=== PATIENT | female | born 1970 | race Caucasian/White ===

== ENCOUNTER → 2016-11-27 | Outpatient (CLI) | payer BC ==
[~2016-11-27] MED LIST: CLMTP5 TOP; CYCL10TA6 PO; ESTROGEN PATCH TOP; FINA1TAB3 PO; IBUP-1050 PO; LORA-741 PO; MTR600X PO; OXYC-57 PO; OXYC5TAB PO; PRED20TA2 PO; SERT-234 PO; SERT25TA PO; VNTHFA/IN INH; albuterol inhaler INH
--- NOTE | 2016-11-28 13:31 | MAMMOGRAPHY REPORT ---
BILATERAL DIGITAL SCREENING MAMMOGRAM TOMOSYNTHESIS WITH CAD: 11/27/2016 CLINICAL HISTORY: Routine screening. Patient has no complaints. TECHNIQUE: Breast tomosynthesis in addition to standard 2D mammography was performed. Current study was also evaluated with a Computer Aided Detection (CAD) system. COMPARISON: Comparison is made to exams dated: 12/05/2014 mammogram, 05/18/2013 mammogram, and 10/24/19 12 mammogram - [facility]. BREAST COMPOSITION: There are scattered areas of fibroglandular density in both breasts. FINDINGS: There are clusters of calcifications in the right upper outer quadrant posteriorly and ri ght breast at approximately 3:00, for which spot magnification views are recommended for further ted luation. The remainder of both breasts are stable compared to prior exams, without suspicious masses, calcifi cations, or areas of architectural distortion noted. IMPRESSION: ACR BI-RADS CATEGORY 0: INCOMPLETE EVALUATION: NEED ADDITIONAL IMAGING EVALUATION Right breast calcifications, for which additional imaging evaluation is recommended. The patient wi ll be called to schedule an appointment. Approximately 10% of breast cancers are not detected with mammography. A negative mammographic repor t should not delay biopsy if a clinically suggestive mass is present. Mary Dent M.D. /:11/27/2016 15:56:18 Machine Welt Butter: Lexie BEAR(Prabhu)(Mohit)(BD), [facility] letter sent: Addl Imaging 0 BI-RADS Code: ACR BI-RADS Category 0: Incomplete Evaluation: Need Additional Imaging Evaluation
== END | disposition home or self-care (01) ==
LOC: C.MAMM 09:50
PROVIDERS: ATTEND Obstetrics & Gynecology
DX: Z12.31 Encounter for screening mammogram for malignant neoplasm of breast (principal); R92.0 Mammographic microcalcification found on diagnostic imaging of breast

== ENCOUNTER → 2016-12-05 | Outpatient (CLI) | payer BC ==
--- NOTE | 2016-12-05 14:33 | MAMMOGRAPHY REPORT ---
UNILATERAL RIGHT DIGITAL DIAGNOSTIC MAMMOGRAM: 12/05/2016 CLINICAL HISTORY: 46-year-old woman called back from screening mammography for 2 clusters of microca lcifications in the right breast. TECHNIQUE: Spot magnification right CC and ML views in the lateral and medial breast were obtained. COMPARISON: Comparison is made to exams dated: 11/27/2016 mammogram, 12/05/2014 mammogram, 10/24/2011 ma mmogram, and 05/18/2013 mammogram - [facility]. BREAST COMPOSITION: There are scattered areas of fibroglandular density in the right breast. FINDINGS: There are punctate and round microcalcifications in a linear distribution in the 1:00 mid dle one third of the right breast. Another fainter grouping of punctate microcalcifications are see n in the 8:00 posterior right breast. No associated mass or architectural distortion with the micro calcifications. They are new comparing to prior exams and therefore indeterminate. Definitive tyler acterization with tissue sampling is recommended. IMPRESSION: ACR BI-RADS CATEGORY 4B: INTERMEDIATE SUSPICION FOR MALIGNANCY The 2 clusters of microcalcifications in the right breast 1:00 and 8:00 axes are indeterminate, annamaria anting further evaluation with stereotactic guided biopsies. Sampling of the dominant punctate and round microcalcifications in a linear distribution in the 1:00 axis should be sampled first, and an attempt should also be made to sample the second, very faint smaller cluster more posteriorly in the 8:00 right breast, if they are visualized. These results and recommendations were discussed with the patient at the time of the exam. She tent atively scheduled the procedures prior to leaving our department. Approximately 10% of breast cancers are not detected with mammography. A negative mammographic repor t should not delay biopsy if a clinically suggestive mass is present. Tamar Castillo M.D. ay/:12/05/2016 09:58:21 Administrative Specialist: Fe BEAR(Prabhu)(Mohit), [facility] letter sent: Abnormal 4/5 BI-RADS Code: ACR BI-RADS Category 4B: Intermediate Suspicion For Malignancy
== END | disposition home or self-care (01) ==
LOC: C.MAMM 08:41
PROVIDERS: ATTEND Obstetrics & Gynecology
DX: R92.0 Mammographic microcalcification found on diagnostic imaging of breast (principal)

== ENCOUNTER 2016-12-17 17:11 | Emergency (ER) | payer BC ==
[~2016-12-17] VITALS: Ht 170.2 cm; Wt 101.4 kg
[~2016-12-17 17:11] MED LIST changes: -CLMTP5 TOP; -CYCL10TA6 PO; -ESTROGEN PATCH TOP; -IBUP-1050 PO; -LORA-741 PO; -OXYC-57 PO; -PRED20TA2 PO; -SERT-234 PO; -SERT25TA PO; -VNTHFA/IN INH
[2016-12-17 17:23] VITALS: TEMP 37; Ht 170.2 cm; Wt 101.4 kg
[2016-12-17] MEDS ORDERED: SODIUM CHLORIDE 0.9% 1000ML 1,000 ML IV STA (18:45)
[2016-12-17] MEDS ORDERED: ONDANSETRON INJ 2 MG/ML 2 ML VIAL IV STA (18:45)
[2016-12-17] MEDS ORDERED: OPTIRAY 320 IV PRN (19:00)
[2016-12-17] MEDS ORDERED: ESTROGEN PATCH TOP (19:27)
[2016-12-17 19:32] LABS: BASO % 0.3 %; BASO ABS # 0.04 K/uL (0-0.2); COMPLETE YES; IG% 0.4 %; LYMPH % 27.7 %; LYMPH ABS # 3.33 K/uL (1.2-3.4); MEAN CELL VOLUME 83.1 fL (80-100); MEAN CORPUSCULAR HEMOGLOBIN 27.9 pg (25-34); MEAN CORPUSCULAR HGB CONC 33.5 g/dl (32-36); MEAN PLATELET VOLUME 8.8 fL (7.4-10.4); MONO % 5.3 %; NEUT % 64.3 %; PLATELET COUNT 265 K/uL (130-400); RED BLOOD COUNT 4.45 M/uL (4.2-5.4); WHITE BLOOD COUNT 12.02 K/uL (4.8-10.8)
[2016-12-17 19:38] LABS: URINE APPEARANCE CLEAR (CLEAR); URINE BILIRUBIN NEG (NEG); URINE COLOR YELLOW; URINE NITRITE NEG (NEG); URINE PH 6.5 (4.5-7.5); URINE SPECIFIC GRAVITY 1.017 (1.000-1.030); UROBILINOGEN NEG (NEG); ZZUR CULT IF INDIC CLEAN CATCH NO
[2016-12-17 19:39] LABS: MANUAL MICROSCOPIC REQUIRED? NO; REVIEW REQ? NO
[2016-12-17 20:02] LABS: ALT/SGPT 33 U/L (12-78); AST/SGOT 18 U/L (15-37); BLOOD UREA NITROGEN 12 mg/dl (7-18); BUN/CREATININE RATIO 14.1 (10-20); CALCIUM 9.2 mg/dl (8.5-10.1); CARBON DIOXIDE 27 mmol/L (21-32); CHLORIDE 108 mmol/L (98-107); CREATININE 0.87 mg/dl (0.60-1.20); GLUCOSE 93 mg/dl (70-99); POTASSIUM 3.8 mmol/L (3.5-5.1); SODIUM 141 mmol/L (136-145)
[2016-12-17 20:05] LABS: ALKALINE PHOSPHATASE 74 U/L (45-117)
--- NOTE | 2016-12-17 22:05 | DIAGNOSTIC IMAGING REPORT ---
ABDOMEN AND PELVIS CT WITH IV AND ORAL CONTRAST CT DOSE: 974.16 mGy.cm HISTORY: Pain rt lower quad pain TECHNIQUE: Multiaxial CT images of the abdomen and pelvis were performed following the use of intravenous and oral contrast. COMPARISON STUDY: 07/31/2016 FINDINGS: Focal air pocket within the posterior right breast presumably from prior biopsy lung bases otherwise are clear. Mild fatty infiltration of liver. Prior cholecystectomy. Kidneys enhance uniformly. Minimal cortical scarring bilaterally. Nonobstructive bowel pattern. Normal appendix. Prior partial history of January. Residual right ovary transaxial image 69 appears unremarkable. Several scattered colonic diverticuli with no evidence for diverticulitis. IMPRESSION: 1. Fatty infiltration of liver. 2. Nonobstructive bowel pattern. 3. Normal appendix. 4. Prior hysterectomy. 5. No acute process of the abdomen or pelvis Electronically signed by: Ceasar Everett M.D. 12/17/2016 10:04 PM Dictated Date/Time: 12/17/2016 9:59 PM
[2016-12-17] MEDS ORDERED: ONDANSETRON HOME PACK 4MG OD TAB PO ONE (22:45)
--- NOTE | 2016-12-17 22:49 | EMERGENCY ROOM VISIT NOTE ---
History First contact with patient: 18:31 Chief Complaint: ABDOMINAL PAIN Stated Complaint: RT SIDE ABDOMINAL PAIN- PHYSICIAN REFERRED Nursing Triage Summary: PT AT [facility] FOR F/U FOR DIVERTICULITIS, RECENTLY DIAGNOSED ONE WEEK AND 1/2 AGO. FINISHED COURSES OF CIPRO AND FLAGYL. PT DEVELOPED RIGHT SIDED ABDOMINAL PAIN X3 DAYS, AND IS NAUSEATED. PT HAS HAD DIARRHEA SINCE DIAGNOSIS OF DIVERTICULITIS. DENIES VOMITING. DENIES BLOOD IN STOOL. History of Present Illness The patient is a 46 year old female who presents to the Emergency Room being sent here by [facility] walk-in clinic for right lower quadrant pain. The patient admits to nausea but denies any vomiting. The patient denies any fever. The patient denies any urinary symptoms of frequency, urgency, dysuria or hematuria. The patient states that she has had diarrhea for approximately one week. The patient was seen at the walk-in clinic on December 07 for left lower quadrant pain and was placed on Cipro and Flagyl. After starting the Cipro and Flagyl the patient started with the diarrhea. She did not have it prior to taking the antibiotics. No imaging was performed at the time of diagnosis. The patient does not have a history of diverticulitis. She does admit to history of cholecystectomy. The patient currently states that her pain is only a 2 out of 10. She states that when she gets the pain it is sharp and stabbing in the right lower quadrant. It does not radiate to the back. Review of Systems 10 system review was performed and was negative unless stated otherwise history of present illness. Past Medical/Surgical History Medical Problems: (1) Abnormal uterine bleeding (AUB) (2) Asthma (3) Diabetes Surgical Problems: (1) H/O section (2) S/P cholecystectomy (3) S/P shoulder surgery Family History Diabetes mellitus FH: cancer FH: gallbladder disease FH: heart disease Hypertension Social History Smoking Status: Never Smoker Alcohol Use: occasionally Marital Status: Housing Status: lives with family Occupation Status: employed Current/Historical Medications Scheduled Sertraline (Zoloft), 100 MG PO HS [Estrogen Patch], Unknown Dose TOP DIRECTED Scheduled PRN Albuterol Hfa (Ventolin Hfa), 2-4 PUFFS INH Q6H PRN for Shortness of Breath Ibuprofen (Advil), 200-600 MG PO Q4H PRN for Pain Lorazepam (Ativan), 0.5 MG PO DAILY PRN for Anxiety/Agitation Allergies Coded Allergies: Penicillins (Verified Allergy, Intermediate, CHILD - HIVES, 12/17/16) Physical Exam Vital Signs Date Time Temp Pulse Resp B/P Pulse Ox O2 Delivery O2 Flow Rate FiO2 12/17/16 21:08 86 16 114/78 97 Room Air 12/17/16 19:14 80 18 128/80 94 Room Air 12/17/16 17:23 37.0 97 18 129/84 96 Room Air Physical Exam GENERAL: 46-year-old white female appears in no acute distress. MENTAL Status: Alert and oriented 3. MOUTH: Mucosa is moist NECK: Supple, no lymphadenopathy noted. No carotid bruits noted. LUNGS: Clear auscultation without wheezes rales or rhonchi. CARDIAC: Regular rate and rhythm without murmur. Pulses is full and equal throughout. BACK: No CVA tenderness noted. ABDOMEN: Positive bowel sounds all 4 quadrants. Soft, moderate tenderness in the right lower quadrant otherwise nontender to palpation without organomegaly or masses. No rebound or rigidity noted. EXTREMITIES: No cyanosis or edema noted. Medical Decision & Procedures ER Provider Diagnostic Interpretation: HISTORY: Pain rt lower quad pain TECHNIQUE: Multiaxial CT images of the abdomen and pelvis were performed following the use of intravenous and oral contrast. COMPARISON STUDY: 07/31/2016 FINDINGS: Focal air pocket within the posterior right breast presumably from prior biopsy lung bases otherwise are clear. Mild fatty infiltration of liver. Prior cholecystectomy. Kidneys enhance uniformly. Minimal cortical scarring bilaterally. Nonobstructive bowel pattern. Normal appendix. Prior partial history of January. Residual right ovary transaxial image 69 appears unremarkable. Several scattered colonic diverticuli with no evidence for diverticulitis. IMPRESSION: 1. Fatty infiltration of liver. 2. Nonobstructive bowel pattern. 3. Normal appendix. 4. Prior hysterectomy. 5. No acute process of the abdomen or pelvis Electronically signed by: Ceasar Everett M.D. 12/17/2016 10:04 PM Dictated Date/Time: 12/17/2016 9:59 PM Laboratory Results 12/17/16 19:08 Red Blood Count 4.45, Mean Corpuscular Volume 83.1, Mean Corpuscular Hemoglobin 27.9, Mean Corpuscular Hemoglobin Concent 33.5, Mean Platelet Volume 8.8, Neutrophils (%) (Auto) 64.3, Lymphocytes (%) (Auto) 27.7, Monocytes (%) (Auto) 5.3, Eosinophils (%) (Auto) 2.0, Basophils (%) (Auto) 0.3, Neutrophils # (Auto) 7.72, Lymphocytes # (Auto) 3.33, Monocytes # (Auto) 0.64, Eosinophils # (Auto) 0.24, Basophils # (Auto) 0.04 12/17/16 19:08 Test 12/17/16 19:08 12/17/16 19:15 White Blood Count 12.02 K/uL (4.8-10.8) Red Blood Count 4.45 M/uL (4.2-5.4) Hemoglobin 12.4 g/dL (12.0-16.0) Hematocrit 37.0 % (37-47) Mean Corpuscular Volume 83.1 fL (80-100) Mean Corpuscular Hemoglobin 27.9 pg (25-34) Mean Corpuscular Hemoglobin Concent 33.5 g/dl (32-36) Platelet Count 265 K/uL (130-400) Mean Platelet Volume 8.8 fL (7.4-10.4) Neutrophils (%) (Auto) 64.3 % Lymphocytes (%) (Auto) 27.7 % Monocytes (%) (Auto) 5.3 % Eosinophils (%) (Auto) 2.0 % Basophils (%) (Auto) 0.3 % Neutrophils # (Auto) 7.72 K/uL (1.4-6.5) Lymphocytes # (Auto) 3.33 K/uL (1.2-3.4) Monocytes # (Auto) 0.64 K/uL (0.11-0.59) Eosinophils # (Auto) 0.24 K/uL (0-0.5) Basophils # (Auto) 0.04 K/uL (0-0.2) RDW Standard Deviation 44.9 fL (36.4-46.3) RDW Coefficient of Variation 14.9 % (11.5-14.5) Immature Granulocyte % (Auto) 0.4 % Immature Granulocyte # (Auto) 0.05 K/uL (0.00-0.02) Anion Gap 6.0 mmol/L (3-11) Est Creatinine Clear Calc Drug Dose 96.8 ml/min Estimated GFR () 91.3 Estimated GFR (Non- 78.8 BUN/Creatinine Ratio 14.1 (10-20) Calcium Level 9.2 mg/dl (8.5-10.1) Total Bilirubin 0.2 mg/dl (0.2-1) Direct Bilirubin < 0.1 mg/dl (0-0.2) Aspartate Amino Transf (AST/SGOT) 18 U/L (15-37) Alanine Aminotransferase (ALT/SGPT) 33 U/L (12-78) Alkaline Phosphatase 74 U/L (45-117) Total Protein 6.9 gm/dl (6.4-8.2) Albumin 3.7 gm/dl (3.4-5.0) Lipase 148 U/L (73-393) Urine Color YELLOW Urine Appearance CLEAR (CLEAR) Urine pH 6.5 (4.5-7.5) Urine Specific [place] 1.017 (1.000-1.030) Urine Protein NEG (NEG) Urine Glucose (UA) NEG (NEG) Urine Ketones NEG (NEG) Urine Occult Blood NEG (NEG) Urine Nitrite NEG (NEG) Urine Bilirubin NEG (NEG) Urine Urobilinogen NEG (NEG) Urine Leukocyte Esterase NEG (NEG) Medications Administered Medications (Trade) Dose Ordered Sig/Carlos Route Start Time Stop Time Status Last Admin Dose Admin Sodium Chloride (Nss 1000ml) 1,000 ml @ 999 mls/hr Q1H1M STAT IV 12/17/16 18:45 12/17/16 19:45 DC 12/17/16 19:12 999 MLS/HR Ondansetron HCl (Zofran Inj) 4 mg NOW STAT IV 12/17/16 18:45 12/17/16 18:49 DC 12/17/16 19:12 4 MG ED Course The patient was evaluated. IV access was obtained. The patient was given 1 L normal saline wide-open. She was given Zofran 4 mg IV for nausea. CBC and differential, renal profile, LFTs and lipase levels were ordered. Urinalysis was ordered. Stool for C. difficile, WBCs and culture was ordered. CT of the abdomen and pelvis with IV and oral contrast was ordered. The patient was offered pain medication but declined at this time. Labs are reviewed and were unremarkable. Except for slightly elevated white count at 12,000. Urinalysis was negative. The patient was unable to give a stool sample while in the emergency room. She will do this as an outpatient. CT was reported by the radiologist as a but without any acute findings. The patient was informed of the CT results as well as lab results. The patient was given a Zofran home pack. The patient was discharged home in stable condition. Medical Decision Differential diagnosis include acute appendicitis, ureteral calculi, UTI, pyelonephritis, diverticulitis, C. difficile Impression Primary Impression: Right lower quadrant pain Additional Impressions: Diarrhea Nausea Departure Information Dispostion Home / Self-Care Condition GOOD Referrals Claire Starkey, C.R.N.P. (PCP) Forms Call Back Authorization, HOME CARE DOCUMENTATION FORM, IMPORTANT VISIT INFORMATION Patient Instructions [employer] Additional Instructions Push fluids. Follow bland diet. Advance diet slowly as tolerated. Take Tylenol and/or ibuprofen as needed for pain. Take Zofran as needed for nausea. Obtain a stool sample as soon as possible and bring it into the lab for evaluation. Further treatment based on stool culture results. If your symptoms worsen in the interim, return to ER. Problem Qualifiers
[2016-12-17 22:58] VITALS: BP 124/91; PULSE 84; O2SAT 96
[2017-05-30] MEDS ORDERED: SERT-234 PO (08:59)
== END 2016-12-17 22:59 | disposition home or self-care (01) ==
LOC: C.EDB 17:12 → C.EDA 22:59
DX: R10.32 Left lower quadrant pain (principal); R19.7 Diarrhea, unspecified; R11.0 Nausea; E11.9 Type 2 diabetes mellitus without complications; J45.909 Unspecified asthma, uncomplicated; Z90.49 Acquired absence of other specified parts of digestive tract; Z98.890 Other specified postprocedural states; Z79.899 Other long term (current) drug therapy; Z88.0 Allergy status to penicillin; Z88.3 Allergy status to other anti-infective agents; Z80.9 Family history of malignant neoplasm, unspecified; Z83.3 Family history of diabetes mellitus; Z82.49 Family history of ischemic heart disease and other diseases of the circulatory system

== ENCOUNTER → 2016-12-17 | Outpatient (CLI) | payer BC ==
--- NOTE | 2016-12-17 09:58 | Discharge Instructions ---
Discharge Instructions Procedure Procedure Date: Dec 17, 2016. Reason for visit: Right Calcifications (X2). Discharge Discharge Date: Dec 17, 2016. Discharge Diagnosis: post right breast stereotactic guided biopsy in the medial and lateral breast Instructions Activity Recommendations: Additional Limitations (see below) Return to School/Work: no limitations Recommended Home Diet: No Limitations Provider Instructions: ACTIVITY RECOMMENDATIONS: * No lifting, pushing, pulling or exercising the affected side for three days. RETURN TO SCHOOL/WORK: * You may return to work/school after the procedure, but do not perform any strenuous activities for 24 to 48 hours. MEDICATIONS: * Tylenol (two 325 mg) every four to six hours if needed for mild pain (if not allergic to Tylenol). DIET: * Resume previous diet. SPECIAL CARE INSTRUCTIONS: * Keep biopsy site dry for 24 hours. May shower after 24 hours, but do not soak (bathe) incision. * May remove Tegaderm (plastic patch) tomorrow AFTER showering. * Leave the steri-strips on for one week. Allow the steri-strips to fall off by themselves. If not off after one week, you may remove them. You may place a Bandaid crosswise over the strips, if desired. * Apply ice 10 minutes on and 10 minutes off as needed. * Wear a bra at bedtime to sleep more comfortably for 2-3 days. * Your referring physician should have the results after approximately 5 to 7 business days. * Call for unusual bleeding, fever, drainage, etc or if you have any questions call [phone] during normal business hours or after hours call Dr Castillo, . FOLLOW UP VISIT: Follow-up with Referring Physician as scheduled. Allergies Coded Allergies: Penicillins (Verified Allergy, Intermediate, CHILD - HIVES, 09/01/16) Teri Sexton Recommendations: Call your doctor if: * Temperature above 101 degrees * Pain not relieved by pain medicine ordered * There is increased drainage or redness from any incision * You have any unanswered questions or concerns. Your Doctors Instructions noted above were prepared by provider Tamar Castillo. Patient Signature Section: Patient Instructions Signature Page Bushra Lewis Patient (or Guardian) Signature/Date: I have read and understand the instructions given to me by my caregivers. Caregiver/RN/Doctor Signature/Date: The above-named patient and/or guardian has received patient instructions on this date. + Original Patient Signature Page (only) stays with chart. Please make copy for patient.
--- NOTE | 2016-12-17 12:41 | MAMMOGRAPHY REPORT ---
MULTIPLE STEREOTACTIC GUIDED BIOPSIES RIGHT BREAST: 12/17/2016 CLINICAL HISTORY: Clustered indeterminate microcalcifications in the medial right breast and lateral right breast. Patient presents for stereotactic biopsy 2. COMPARISON: Prior diagnostic mammograms dated 12/05/2016, screening mammograms dated 11/27/2016, , 05/18/2013, 10/24/2011. PATIENT CONSENT: After explaining the risks, benefits and alternatives of the procedure to the patie nt, informed consent was obtained both verbally and in writing. Specific risks include: Bleeding, i nfection, puncture of adjacent structure, nontarget biopsy, sampling error, metal allergy and medica tion reaction. PROCEDURE DESCRIPTION: A time-out was performed and the right breast was confirmed as the site of cayetano th biopsies. First the calcifications in the medial breast were targeted. The patient was placed p kolton on the stereotactic biopsy table and the breast was placed in mediallateral compression. A sco ut image was obtained that demonstrated the clustered microcalcifications in question. They are hugh nable to sterotactic biopsy. Then +15 and -15 stereo pair images were obtained. The calcifications were targeted utilizing the coordinates obtained by the computer. The skin was prepped with Betadi ne. 1% Lidocaine with and without epinipherine was administered as local anesthesia. A small skin in cision was made. Through the incision, the needle was inserted to the depth determined by the compu ter. 10 samples were obtained using a Hoverinkiva 9-gauge vacuum-assisted biopsy device. The specime n radiograph demonstrated several canvas products sales representative microcalcifications, therefore, a dumbbell shaped m etallic marker was placed at the biopsy site. There was no immediate complication. Hemostasis was ac hieved after several minutes of manual compression. The samples with calcifications were out and all of the samples were sent to pathology in 2 appropriately labeled containers, labeled "me dial breast with calcifications", and "remaining tissue". Then the lateral calcifications were targeted. The right breast was placed in CC from above kaci kisha. A flower arranger image was obtained that demonstrated the clustered microcalcifications in question. T hey are amenable to sterotactic biopsy. Then +15 and -15 stereo pair images were obtained. The chip cifications were targeted utilizing the coordinates obtained by the computer. However, the computer coordinates demonstrated the calcifications to be located more inferiorly in the breast. Then posi tioning was changed to CC from below and repeat stereo pair images were obtained. The skin was prep ped with Betadine. 1% Lidocaine with and without epinipherine was administered as local anesthesia. A small skin incision was made. Through the incision, the needle was inserted to the depth determin ed by the computer. 8 samples were obtained using a Hoverinkiva 9-gauge vacuum-assisted biopsy devic e. The specimen radiograph demonstrated several canvas products sales representative microcalcifications, therefore, a "t- shaped" metallic marker was placed at the biopsy site. There was no immediate complication. Hemostas is was achieved after several minutes of manual compression. The samples with calcifications were s eparated out and all of the samples were sent to pathology in 2 appropriately labeled containers, la beled "lateral breast with calcifications", and "remaining tissue". Postprocedure CC and ML views of the right breast demonstrates biopsy cavities and associated metall ic biopsy markers in the medial and lateral breast. No significant postbiopsy hematoma is seen at e ither site. Pathology is pending. IMPRESSION: STEREOTACTIC GUIDED BIOPSY Status post stereotactic guided biopsy of indeterminate clustered microcalcifications in the medial and lateral breast, with biopsy markers placed at each site. The patient will receive notification of the biopsy results from her referring physician. Tamar Castillo M.D. ay/:12/17/2016 11:08:19 Woodworker Helper: Fe DAWKINS)(Mohit), [facility]
--- NOTE | 2016-12-17 12:42 | MAMMOGRAPHY REPORT ---
UNILATERAL RIGHT DIGITAL DIAGNOSTIC MAMMOGRAM: 12/17/2016 CLINICAL HISTORY: Status post stereotactic guided biopsy 2 in the right medial and lateral breast. Please refer to report from right breast stereotactic guided biopsy performed at the same time for f ull detail. IMPRESSION: POST PROCEDURE IMAGING FOR MARKER PLACEMENT Please refer to report from right breast stereotactic guided biopsy performed at the same time for f ull detail. Approximately 10% of breast cancers are not detected with mammography. A negative mammographic repor t should not delay biopsy if a clinically suggestive mass is present. Tamar Castillo M.D. ay/:12/17/2016 10:20:24 Pricer: Fe BEAR(R)(M), [facility] BI-RADS Code: Post Procedure Imaging For Marker Placement
== END | disposition home or self-care (01) ==
LOC: C.MAMM 08:18
PROVIDERS: ATTEND Obstetrics & Gynecology
DX: R92.0 Mammographic microcalcification found on diagnostic imaging of breast (principal)

== ENCOUNTER 2017-05-30 19:22 | Emergency (ER) | payer BC ==
[~2017-05-30] VITALS: Ht 170.2 cm; Wt 102.1 kg
[~2017-05-30 19:22] MED LIST changes: +ESTROGEN PATCH TOP; -FINA1TAB3 PO; -MTR600X PO; -OXYC5TAB PO; +SERT-234 PO; -albuterol inhaler INH
[2017-05-30] MEDS ORDERED: IBUP-1050 PO (19:27)
[2017-05-30] MEDS ORDERED: LORA-741 PO (19:27)
[2017-05-30] MEDS ORDERED: VNTHFA/IN INH (19:27)
[2017-05-30 19:28] VITALS: BP 131/83; PULSE 97; TEMP 36.8; O2SAT 98; Ht 170.2 cm; Wt 102.1 kg
--- NOTE | 2017-05-30 20:16 | DIAGNOSTIC IMAGING REPORT ---
C-SPINE ROUTINE 4 OR 5 VIEWS HISTORY: Pain. Neuropathy. Neck and L shoulder pain COMPARISON: None. FINDINGS: The cervical spine is visualized from C1 through the superior endplate of T1. There is no fracture. No subluxation. Degenerative disc change most prominent at C6-C7. Moderate osteophytic narrowing of the bulk of the neuroforamina bilaterally. No evidence for compression deformity. C1-C2 complex is intact. Prevertebral soft tissues and the atlantodens interval are intact. IMPRESSION: Moderate degenerative change. No acute process. The above report was generated using voice recognition software. It may contain grammatical, syntax or spelling errors. Electronically signed by: Ceasar Everett M.D. 05/30/2017 8:14 PM Dictated Date/Time: 05/30/2017 8:14 PM
--- NOTE | 2017-05-30 20:16 | DIAGNOSTIC IMAGING REPORT ---
LEFT SHOULDER MIN 2 VIEWS ROUTINE CLINICAL HISTORY: same pain. Neuropathy. COMPARISON: None. DISCUSSION: The bones and joint spaces appear intact. There is no evidence of fracture, dislocation or bony disease. There is no evidence for soft tissue swelling. IMPRESSION: Negative study. The above report was generated using voice recognition software. It may contain grammatical, syntax or spelling errors. Electronically signed by: Ceasar Everett M.D. 05/30/2017 8:15 PM Dictated Date/Time: 05/30/2017 8:15 PM
[2017-05-30] MEDS ORDERED: PRED20TA2 PO (20:31)
[2017-05-30] MEDS ORDERED: OXYC-57 PO (20:33)
[2017-05-30] MEDS ORDERED: CLMTP5 TOP (20:38)
[2017-05-30] MEDS ORDERED: CYCL10TA6 PO (20:38)
[2017-05-30] MEDS ORDERED: SERT25TA PO (20:38)
--- NOTE | 2017-05-31 21:31 | EMERGENCY ROOM VISIT NOTE ---
ED Visit Note First contact with patient: 19:31 Chief Complaint: I'm having pain in my left shoulder and arm. History of Present Illness: Ms. Lewis is a 46-year-old white female who ambulates into the ED accompanied by male friend complaining of left shoulder pain in the area of the mid trapezius and left upper arm pain in the area of the triceps muscle. Historically patient reports that 2 years ago she had an MRI of her cervical spine that showed 2 herniated disks. She was evaluated at surgery was not recommended at that time. She reports since that time she has been doing well. Patient reports 4 days ago she started experiencing left neck pain in the area of the upper trapezius and and upper arm pain in the area of the triceps. She was seen by her PCP and this was felt to be muscle spasm. She was prescribed Flexeril. She reports taking Flexeril for day without relief and she was seen again by her PCP. At that time he prescribed Percocet. Patient reports she has been taking Flexeril and Percocet for the last 2 days and is not having any relief of her discomfort. Patient describes her pain as a deep achy sensation and a sharp sensation in the midportion of the left trapezius and a deep achy sensation of the triceps. She rates her discomfort 7/10. She is unsure if this is true radiation of neck pain to the triceps pain. Her pain worsens with palpation of the trapezius and minimally with the triceps. Additionally her pain is worsened with abduction, extension and rotation of the glenohumeral joint and extension of the elbow. Associated with her symptoms she does report she reports she feels like there is mild decrease in strength with elbow extension and she is having some mild paresthesias of the lower arm.. She denies any recent trauma or repetitive trauma to these areas, fevers, chills , sweats, skin eruptions, skin color changes, upper respiratory tract symptoms, shortness of breath, decreased appetite, nausea/vomiting.. Review of Systems: As noted above in history of present illness. Past Medical History: As previously noted, gestational diabetes, asthma, bronchitis, status post cholecystectomy, section me, D&C, and sections. Current Medications: Zoloft, albuterol, Ativan. Allergies to Medications: Penicillin. Social History: Patient is currently employed; she lives with her and children and feels safe in her home environment; she denies tobacco and alcohol use. Physical Examination: Vital Signs: Date Time Temp Pulse Resp B/P (MAP) Pulse Ox O2 Delivery O2 Flow Rate FiO2 05/30/17 19:28 36.8 97 18 131/83 98 Room Air GENERAL: 46-year-old female in mild to moderate distress due to pain, nontoxic- appearing, afebrile and hemodynamically stable. NEUROLOGICAL: Awake, alert and oriented to person, place and time. Answering questions appropriately and following commands. SKIN: Warm, dry and pink. No soft tissue eruptions or trauma noted. HEENT: Atraumatic and normocephalic. BACK: No tenderness over the bony cervical or thoracic spine. Moderate tenderness to the left trapezius muscle with a palpable spasm. I do not appreciate any erythema, edema or warmth. Full range of motion of the cervical spine against resistance. No CVA tenderness. THORAX: Lungs sounds are clear to auscultation and equal bilaterally with symmetrical chest wall. LEFT UPPER EXTREMITY: No gross bony deformities. Mild tenderness over the anterior and posterior head but no tenderness over the clavicle, acromioclavicular joint or scapula. She has slightly restricted motion predominantly with flexion and extension of the shoulder due to pain. With the shoulder stabilize she does have full range of motion in flexion and extension and pronation and supination the forearm. She does have some mild tenderness throughout the trapezius muscle. I did not appreciate any deficits in muscle strength in all movements of the shoulder, elbow or forearm. 2+ biceps, triceps and brachial radialis deep tendon reflexes. Throughout the hand the skin was warm and pink and capillary refill is brisk. Distal pulses were intact. She was able to distinguish light sensations through all dermatomes. ED Course: Patient is assessed as noted above. Patient's medication list was reviewed. Cervical Spine X-Rays: Were reviewed by myself and read by the radiologist showing no acute fractures or subluxations. D-dimer disc changes most prominent C6-C7 with moderate osteophytic narrowing of the bulk of the neuroforamina bilaterally. Left Shoulder X-Rays: Were read by myself and the radiologist showing no acute fractures or dislocations. Patient was given 60 mg of prednisone by mouth for inflammation. Patient was educated about today's findings and instructed on her treatment plan ; she verbalized understanding and agreement with this plan. Clinical Impression: Cervical radiculopathy at C6. Decision-Making: Initially my differential diagnosis I considered muscle strain , muscle spasm, cervical or shoulder fracture/dislocation, disc disease with radiculopathy and other causes. Disposition: Patient discharged home in stable condition accompanied by her ; prior to departure she was reassessed and subjectively reported she was pain-free. Plan: Patient was encouraged to continue her Percocet as prescribed and alternate with ibuprofen every 3 hours. Patient was prescribed prednisone 60 mg once a day for 3 additional days. Other comfort measures were discussed with the patient including the use of ice and a sling to rest her arm. Patient is encouraged to follow-up with her PCP for recheck and possible MRI or referral to back specialist. Patient was encouraged return ED for worsening pain, fevers, arm/hand weakness/ numbness/tingling or any new/concerning symptoms.
== END 2017-05-30 20:37 | disposition home or self-care (01) ==
LOC: C.EDB 19:23 → C.EDD 20:37
DX: M54.12 Radiculopathy, cervical region (principal); J45.909 Unspecified asthma, uncomplicated; Z90.49 Acquired absence of other specified parts of digestive tract; Z88.0 Allergy status to penicillin

== ENCOUNTER 2017-07-21 11:30 | Emergency (ER) | payer BC ==
[~2017-07-21] VITALS: Ht 170.2 cm; Wt 101.0 kg
[~2017-07-21 11:30] MED LIST changes: +CLMTP5 TOP; +CYCL10TA6 PO; -ESTROGEN PATCH TOP; +IBUP-1050 PO; +LORA-741 PO; +OXYC-57 PO; +PRED20TA2 PO; +SERT25TA PO; +VNTHFA/IN INH
[2017-07-21 11:34] VITALS: Ht 170.2 cm; Wt 101.0 kg
[2017-07-21 12:17] LABS: MANUAL MICROSCOPIC REQUIRED? NO; REVIEW REQ? NO; URINE APPEARANCE CLEAR (CLEAR); URINE BILIRUBIN NEG (NEG); URINE COLOR YELLOW; URINE NITRITE NEG (NEG); URINE SPECIFIC GRAVITY 1.016 (1.000-1.030); UROBILINOGEN NEG (NEG); ZZUR CULT IF INDIC CLEAN CATCH NO
[2017-07-21 12:32] LABS: BASO % 0.2 %; BASO ABS # 0.02 K/uL (0-0.2); COMPLETE YES; EOS % 1.1 %; HEMATOCRIT 38.1 % (37-47); IG% 0.3 %; LYMPH ABS # 2.87 K/uL (1.2-3.4); MEAN CORPUSCULAR HEMOGLOBIN 29.2 pg (25-34); MEAN CORPUSCULAR HGB CONC 33.6 g/dl (32-36); MEAN PLATELET VOLUME 8.8 fL (7.4-10.4); MONO % 4.9 %; NEUT % 60.5 %; PLATELET COUNT 217 K/uL (130-400); RED BLOOD COUNT 4.38 M/uL (4.2-5.4)
[2017-07-21 12:49] LABS: ALT/SGPT 46 U/L (12-78); AST/SGOT 22 U/L (15-37); BLOOD UREA NITROGEN 10 mg/dl (7-18); BUN/CREATININE RATIO 11.2 (10-20); CALCIUM 8.8 mg/dl (8.5-10.1); CARBON DIOXIDE 24 mmol/L (21-32); CHLORIDE 107 mmol/L (98-107); CREATININE 0.88 mg/dl (0.60-1.20); GLUCOSE 95 mg/dl (70-99); POTASSIUM 3.9 mmol/L (3.5-5.1); SODIUM 140 mmol/L (136-145)
[2017-07-21 12:52] LABS: ALKALINE PHOSPHATASE 71 U/L (45-117)
[2017-07-21 13:10] VITALS: BP 122/75; PULSE 82; TEMP 36.7; O2SAT 95
--- NOTE | 2017-07-21 13:10 | EMERGENCY ROOM VISIT NOTE ---
History First contact with patient: 11:43 Chief Complaint: URINARY SYMPTOMS Stated Complaint: N, ABD. PAIN, HEART RACING History of Present Illness The patient is a 46 year old female who presents to the Emergency Room with complaints of well not feeling well, heart racing last night and nausea. The patient reports that she was seen last by MISA Daily for urinary tract infection, possible early pyelonephritis. The patient was provided a prescription for Cipro, and instructed to go to the emergency department if her symptoms worsen. The patient reports that she initially had dark cloudy urine with mild blood. She reports that the urine looks much better , and she felt better until last evening when she started to develop worsening pelvic pain and heart racing. She reports nausea without vomiting. The patient does report a history of recurrent urinary tract infection. She has had a kidney infection in the remote past. The patient reports generalized abdominal pain as well as. The patient is status post hysterectomy and cholecystectomy. She still has her appendix. She denies any significant pain at this time, and denies any alleviating or aggravating factors for her discomfort or nausea. Review of Systems HEENT: Denies dizziness, visual problems, hearing loss, tinnitus. Denies difficulty swallowing or oral lesions. PULMONARY: Denies cough, shortness of breath, sputum production or hemoptysis. CARDIOVASCULAR: Denies chest pain, palpitations, dyspnea on exertion, orthopnea or peripheral edema. GASTROINTESTINAL: See history of present illness. GENITOURINARY: See history of present illness. NEUROLOGIC: Denies history of epilepsy, CVA, TIA or chronic headaches. MUSCULOSKELETAL: Denies history of joint tenderness/swelling. SKIN: Denies rashes or lesions. PSYCHIATRIC: Denies history of depression or mental illness. ENDOCRINE: Denies history of diabetes or thyroid disorders. Past Medical/Surgical History Medical Problems: (1) Abnormal uterine bleeding (AUB) (2) Asthma (3) Diabetes Surgical Problems: (1) H/O section (2) S/P cholecystectomy (3) S/P shoulder surgery Family History Diabetes mellitus FH: cancer FH: gallbladder disease FH: heart disease Hypertension Social History Smoking Status: Never Smoker Alcohol Use: occasionally Marital Status: Housing Status: lives with family Occupation Status: employed Current/Historical Medications Scheduled Estradiol (Estradiol), 0.05 MG TOP 2XWK Sertraline (Zoloft), 100 MG PO DAILY Sertraline (Zoloft), 25 MG PO DAILY Scheduled PRN Ibuprofen (Advil), 200-600 MG PO Q4H PRN for Pain Lorazepam (Ativan), 0.5 MG PO DAILY PRN for Anxiety/Agitation Physical Exam Vital Signs Date Time Temp Pulse Resp B/P (MAP) Pulse Ox O2 Delivery O2 Flow Rate FiO2 07/21/17 11:34 36.7 90 16 125/79 98 Physical Exam CONSTITUTIONAL: Obese female, alert and oriented X 3 with positive affect. She does not appear in any acute distress, nor does she appear acutely ill or toxic. HEENT: Normocephalic, atraumatic. Pupils equal, round and reactive. Ears and nares are clear. No scleral icterus or conjunctival pallor. OROPHARYNX: Mucous membranes are moist. No tonsillar hypertrophy or exudates. NECK: Full active range of motion without discomfort. No nuchal rigidity. RESPIRATORY: Clear to auscultation bilaterally with no wheezing, crackles, rhonchi or stridor. CARDIOVASCULAR: Regular rate and rhythm with no murmurs, rubs or gallops. GASTROINTESTINAL: Bowel sounds present in all quadrants. Patient has generalized discomfort of the upper abdomen. Negative McBurney's point tenderness. Negative psoas/obturator sign. Negative heel tap. Negative McBurney's point tenderness. Negative Rovsing sign. Minimally positive left CVA tenderness. MUSCULOSKELETAL: Full range of motion of all joints without discomfort. INTEGUMENTARY: No rash or other significant dermatologic conditions noted. HEMATOLOGIC: No ecchymosis or petechiae noted. NEUROLOGIC: No focal neurologic deficits noted. Medical Decision & Procedures Laboratory Results 07/21/17 12:15 Red Blood Count 4.38, Mean Corpuscular Volume 87.0, Mean Corpuscular Hemoglobin 29.2, Mean Corpuscular Hemoglobin Concent 33.6, Mean Platelet Volume 8.8, Neutrophils (%) (Auto) 60.5, Lymphocytes (%) (Auto) 33.0, Monocytes (%) (Auto) 4.9, Eosinophils (%) (Auto) 1.1, Basophils (%) (Auto) 0.2, Neutrophils # (Auto) 5.25, Lymphocytes # (Auto) 2.87, Monocytes # (Auto) 0.43, Eosinophils # (Auto) 0.10, Basophils # (Auto) 0.02 07/21/17 12:15 Test 07/21/17 12:05 07/21/17 12:15 Urine Color YELLOW Urine Appearance CLEAR (CLEAR) Urine pH 5.0 (4.5-7.5) Urine Specific [place] 1.016 (1.000-1.030) Urine Protein NEG (NEG) Urine Glucose (UA) NEG (NEG) Urine Ketones NEG (NEG) Urine Occult Blood NEG (NEG) Urine Nitrite NEG (NEG) Urine Bilirubin NEG (NEG) Urine Urobilinogen NEG (NEG) Urine Leukocyte Esterase NEG (NEG) White Blood Count 8.70 K/uL (4.8-10.8) Red Blood Count 4.38 M/uL (4.2-5.4) Hemoglobin 12.8 g/dL (12.0-16.0) Hematocrit 38.1 % (37-47) Mean Corpuscular Volume 87.0 fL (80-100) Mean Corpuscular Hemoglobin 29.2 pg (25-34) Mean Corpuscular Hemoglobin Concent 33.6 g/dl (32-36) Platelet Count 217 K/uL (130-400) Mean Platelet Volume 8.8 fL (7.4-10.4) Neutrophils (%) (Auto) 60.5 % Lymphocytes (%) (Auto) 33.0 % Monocytes (%) (Auto) 4.9 % Eosinophils (%) (Auto) 1.1 % Basophils (%) (Auto) 0.2 % Neutrophils # (Auto) 5.25 K/uL (1.4-6.5) Lymphocytes # (Auto) 2.87 K/uL (1.2-3.4) Monocytes # (Auto) 0.43 K/uL (0.11-0.59) Eosinophils # (Auto) 0.10 K/uL (0-0.5) Basophils # (Auto) 0.02 K/uL (0-0.2) RDW Standard Deviation 41.9 fL (36.4-46.3) RDW Coefficient of Variation 13.1 % (11.5-14.5) Immature Granulocyte % (Auto) 0.3 % Immature Granulocyte # (Auto) 0.03 K/uL (0.00-0.02) Anion Gap 9.0 mmol/L (3-11) Est Creatinine Clear Calc Drug Dose 95.5 ml/min Estimated GFR () 90.0 Estimated GFR (Non- 77.7 BUN/Creatinine Ratio 11.2 (10-20) Calcium Level 8.8 mg/dl (8.5-10.1) Total Bilirubin 0.3 mg/dl (0.2-1) Direct Bilirubin < 0.1 mg/dl (0-0.2) Aspartate Amino Transf (AST/SGOT) 22 U/L (15-37) Alanine Aminotransferase (ALT/SGPT) 46 U/L (12-78) Alkaline Phosphatase 71 U/L (45-117) Total Creatine Kinase 141 U/L (26-192) Total Protein 7.2 gm/dl (6.4-8.2) Albumin 3.7 gm/dl (3.4-5.0) Lipase 110 U/L (73-393) The above labs were reviewed and were grossly normal, including urinalysis. ED Course Patient history and physical exam were performed. Nurse's notes were reviewed. Vital signs were reviewed and were normal. The patient is normotensive and not tachycardic. She is also afebrile. The patient denies any significant discomfort at the time of exam, and refuses any analgesics or antiemetics. I did call and spoke with Claire's nurse, who sent urine cultures via fax to the emergency department. Review of labs shows that a urine dip was performed, but urine cultures were not ordered. IV access was established, and labs were drawn. Review of labs showed no acute abnormalities. Urinalysis at this point is not suggestive of infection, suggesting that Cipro antibiotics as covered her UTI. The patient was advised of her laboratory findings. The patient was instructed to complete and finish all Cipro antibiotics as previously prescribed. She was encouraged to follow- up with her family doctor in 48 hours for recheck, returning to the emergency department for any progressively worsening symptoms. The patient was happy with plan of care, voiced understanding of all discharge instructions, and denied any significant discomfort at the time of discharge. Medical Decision Patient presents to the emergency department with preceding urinary symptoms and generalized discomfort and nausea. The patient does report that her urine has improved in appearance. Review of her office urine dip does show evidence for infection. Her urinalysis today, however, is now clear, suggesting that Cipro is covering her infection. At this point, I do not feel that further imaging studies are needed. I entertained such ideas as kidney stone, however one would expect for the patient to still have hematuria if that were the case. The patient is status post cholecystectomy and hysterectomy. She does still have her appendix, however has no McBurney's point tenderness to suggest acute appendicitis. Medication Reconcilliation Current Medication List: was personally reviewed by me Blood Pressure Screening Patient's blood pressure: Normal blood pressure Impression Primary Impression: Pyelonephritis Departure Information Referrals No Doctor, Assigned (PCP) Patient Instructions [facility]
== END 2017-07-21 13:19 | disposition home or self-care (01) ==
LOC: C.EDB 11:32 → C.EDC 13:19
DX: N12 Tubulo-interstitial nephritis, not specified as acute or chronic (principal); R11.0 Nausea; E11.9 Type 2 diabetes mellitus without complications; J45.909 Unspecified asthma, uncomplicated; Z90.49 Acquired absence of other specified parts of digestive tract; Z90.710 Acquired absence of both cervix and uterus; Z98.890 Other specified postprocedural states; Z79.899 Other long term (current) drug therapy; Z83.3 Family history of diabetes mellitus; Z80.9 Family history of malignant neoplasm, unspecified; Z83.79 Family history of other diseases of the digestive system; Z82.49 Family history of ischemic heart disease and other diseases of the circulatory system

== ENCOUNTER 2017-12-28 17:42 | Emergency (ER) | payer OTHER ==
[~2017-12-28] VITALS: Ht 170.2 cm; Wt 100.6 kg
[~2017-12-28 17:42] MED LIST changes: -CYCL10TA6 PO; -OXYC-57 PO; -PRED20TA2 PO; -VNTHFA/IN INH
[2017-12-28 17:52] VITALS: BP 143/85; PULSE 82; TEMP 36.7; O2SAT 97; Ht 170.2 cm; Wt 100.6 kg
[2017-12-28 18:28] LABS: BASO % 0.1 %; BASO ABS # 0.02 K/uL (0-0.2); EOS % 1.1 %; EOS ABS # 0.16 K/uL (0-0.5); HEMATOCRIT 40.2 % (37-47); HEMOGLOBIN 13.7 g/dL (12.0-16.0); IG# 0.04 K/uL (0.00-0.02); LYMPH % 21.9 %; LYMPH ABS # 3.08 K/uL (1.2-3.4); MEAN CELL VOLUME 86.5 fL (80-100); MEAN CORPUSCULAR HEMOGLOBIN 29.5 pg (25-34); MEAN CORPUSCULAR HGB CONC 34.1 g/dl (32-36); MEAN PLATELET VOLUME 8.9 fL (7.4-10.4); MONO % 4.9 %; MONO ABS # 0.69 K/uL (0.11-0.59); NEUT % 71.7 %; NEUT ABS # 10.08 K/uL (1.4-6.5); PLATELET COUNT 233 K/uL (130-400); RED CELL DISTRIBUTION WIDTH CV 13.7 % (11.5-14.5); RED CELL DISTRIBUTION WIDTH SD 42.8 fL (36.4-46.3); WHITE BLOOD COUNT 14.07 K/uL (4.8-10.8)
[2017-12-28 18:49] LABS: ALBUMIN 4.1 gm/dl (3.4-5.0); CALCIUM 9.3 mg/dl (8.5-10.1); CREATININE 0.88 mg/dl (0.60-1.20); POTASSIUM 3.8 mmol/L (3.5-5.1)
[2017-12-28 18:52] LABS: TOTAL PROTEIN 7.5 gm/dl (6.4-8.2)
== END 2017-12-28 19:20 | disposition left against medical advice (07) ==
LOC: C.EDB 17:44
DX: R10.9 Unspecified abdominal pain (principal)

== ENCOUNTER → 2017-12-31 | Outpatient (CLI) | payer OTHER ==
[~2017-12-31] MED LIST changes: +CIPROFLOXACIN 500 MG PO; +METR-163 PO
--- NOTE | 2018-01-01 07:46 | MAMMOGRAPHY REPORT ---
BILATERAL DIGITAL SCREENING MAMMOGRAM TOMOSYNTHESIS WITH CAD: 12/31/2017 CLINICAL HISTORY: Routine screening. Patient has no complaints. TECHNIQUE: Breast tomosynthesis in addition to standard 2D mammography was performed. Current study was also evaluated with a Computer Aided Detection (CAD) system. COMPARISON: Comparison is made to exams dated: 12/17/2016 mammogram, 12/17/2016 stereotactic biopsy, mammogram, 11/27/2016 mammogram, 12/05/2014 mammogram, and 05/18/2013 mammogram - [facility]. BREAST COMPOSITION: There are scattered areas of fibroglandular density in both breasts. FINDINGS: No suspicious masses, calcifications, or areas of architectural distortion are noted in ei ther breast. There has been no significant interval change compared to prior exams. Two biopsy marke r clips are noted in the right breast from prior benign stereotactic biopsies. IMPRESSION: ACR BI-RADS CATEGORY 2: BENIGN There is no mammographic evidence of malignancy. A 1 year screening mammogram is recommended. The pa tient will receive written notification of the results. Approximately 10% of breast cancers are not detected with mammography. A negative mammographic report should not delay biopsy if a clinically suggestive mass is present. Mary Dent M.D. ah/:12/31/2017 14:49:44 [employer] Dra[employer]: Wanda DAWKINS)(M), [facility] letter sent: Normal 1/2 BI-RADS Code: ACR BI-RADS Category 2: Benign
== END | disposition home or self-care (01) ==
LOC: C.MAMM 14:25
PROVIDERS: ATTEND Obstetrics & Gynecology
DX: Z12.31 Encounter for screening mammogram for malignant neoplasm of breast (principal)

== ENCOUNTER 2018-01-01 09:57 | Emergency (ER) | payer OTHER ==
[~2018-01-01] VITALS: Ht 170.2 cm; Wt 100.2 kg
[~2018-01-01 09:57] MED LIST changes: -CIPROFLOXACIN 500 MG PO; -METR-163 PO
[2018-01-01 10:04] VITALS: TEMP 36.8; Ht 170.2 cm; Wt 100.2 kg
[2018-01-01] MEDS ORDERED: SODIUM CHLORIDE 0.9% 1000ML 1,000 ML IV STA (10:21)
[2018-01-01] MEDS ORDERED: CIPROFLOXACIN 500 MG PO (10:40)
[2018-01-01] MEDS ORDERED: METR-163 PO (10:40)
[2018-01-01 10:58] LABS: BASO % 0.2 %; BASO ABS # 0.02 K/uL (0-0.2); EOS % 1.2 %; HEMATOCRIT 38.6 % (37-47); HEMOGLOBIN 13.2 g/dL (12.0-16.0); IG# 0.02 K/uL (0.00-0.02); LYMPH % 30.8 %; LYMPH ABS # 2.51 K/uL (1.2-3.4); MEAN CELL VOLUME 85.8 fL (80-100); MEAN CORPUSCULAR HEMOGLOBIN 29.3 pg (25-34); MEAN CORPUSCULAR HGB CONC 34.2 g/dl (32-36); MEAN PLATELET VOLUME 8.7 fL (7.4-10.4); MONO % 3.6 %; MONO ABS # 0.29 K/uL (0.11-0.59); NEUT ABS # 5.21 K/uL (1.4-6.5); PLATELET COUNT 263 K/uL (130-400); RED CELL DISTRIBUTION WIDTH CV 13.5 % (11.5-14.5); RED CELL DISTRIBUTION WIDTH SD 42.1 fL (36.4-46.3); WHITE BLOOD COUNT 8.15 K/uL (4.8-10.8)
[2018-01-01 11:16] LABS: ALBUMIN 3.7 gm/dl (3.4-5.0); ALT/SGPT 35 U/L (12-78); AST/SGOT 16 U/L (15-37); BLOOD UREA NITROGEN 11 mg/dl (7-18); CALCIUM 9.4 mg/dl (8.5-10.1); CARBON DIOXIDE 27 mmol/L (21-32); GLUCOSE 98 mg/dl (70-99); LIPASE 104 U/L (73-393); SODIUM 137 mmol/L (136-145)
[2018-01-01 11:18] LABS: ALKALINE PHOSPHATASE 69 U/L (45-117); TOTAL PROTEIN 7.4 gm/dl (6.4-8.2)
[2018-01-01] MEDS ORDERED: OPTIRAY 320 IV PRN (11:30)
--- NOTE | 2018-01-01 12:30 | DIAGNOSTIC IMAGING REPORT ---
ABDOMEN AND PELVIS CT WITH IV CONTRAST CT DOSE: 920.74 mGy.cm HISTORY: Acute left lower quadrant abdominal pain abd pain LLQ TECHNIQUE: Multiaxial CT images of the abdomen and pelvis were performed following the use of intravenous contrast. A dose lowering technique was utilized adhering to the principles of ALARA. COMPARISON STUDY: CT 12/17/2016 and 12/03/2013. FINDINGS: Mild dependent subsegmental bibasilar atelectasis. 5 mm solid nodule of the basal left lower lobe, image 40 series 3, unchanged from study dated 12/03/2013 compatible with benign etiology. No pneumatosis or pneumoperitoneum. Imaged inferior cardiac chambers are unremarkable. Prior cholecystectomy. Hepatic steatosis. Spleen, pancreas and adrenal glands are within normal limits. Kidneys, ureters and bladder are unremarkable. Prior hysterectomy. The lesser noted within the pelvis. Aorta appears normal. No bulky adenopathy. No bowel obstruction. There is mild wall thickening of the proximal sigmoid colon with mild associated inflammatory changes and thickening of the adjacent peritoneum. The inflammation appears be centered about colonic diverticula. Multiple additional noninflamed diverticula are noted throughout the colon. No evidence of perforation or drainable fluid collection. Moderate stool volume throughout the colon. Normal appendix. Tiny fat filled periumbilical hernia, 1.7 cm with diastases recti. Bones appear intact. Mild to moderate degenerative disc disease at L5-S1. IMPRESSION: 1. Findings compatible with mild acute sigmoid diverticulitis without evidence of perforation or drainable fluid collection. 2. No bowel obstruction. 3. Prior hysterectomy and cholecystectomy. 4. Hepatic steatosis. 5. Tiny fat filled periumbilical hernia. Electronically signed by: Bert Key M.D. 01/01/2018 12:29 PM Dictated Date/Time: 01/01/2018 12:23 PM
[2018-01-01 13:22] VITALS: BP 124/69; PULSE 80; O2SAT 99
--- NOTE | 2018-01-01 16:21 | EMERGENCY ROOM VISIT NOTE ---
History Report prepared by Mike: Stephanie Chavarria Under the Supervision of: Dr. Andi Moon D.O. First contact with patient: 10:08 Chief Complaint: ABDOMINAL PAIN Stated Complaint: LOWER LEFT ABDOMINAL PAIN History of Present Illness The patient is a 47 year old female who presents to the Emergency Room with complaints of sharp left lower abdominal pain beginning on Thursday, four days ago. The patient reports her pain is temporarily relieved while at rest. The patient has a history of diverticulitis and reports her pain feels similar to her previous diverticulitis. The patient was started on Cipro and Flagyl on Thursday. She reports when she previously had diverticulitis her symptoms resolved immediately after being started on antibiotics. Pain is fairly persistent but significantly worsened with movement. Pt denies headache, change in vision, fevers, cough, sorethroat chest pain, shortness of breath, nausea, vomiting, diarrhea, pain with urination, vaginal bleeding, vaginal discharge, and melena. The patient has a history of a cholecystectomy and her left ovary removed. The patient's last bowel movement was this morning which was normal. Source of History: patient Onset: four days ago Position: abdomen (LLQ) Quality: sharp Modifying Factors (Worsening): rest Associated Symptoms: + abdominal pain, No fevers, No sorethroat, No cough, No chest pain, No SOB, No nausea, No vomiting, No diarrhea, No urinary symptoms Review of Systems See HPI for pertinent positives & negatives. A total of 10 systems reviewed and were otherwise negative. Past Medical & Surgical Medical Problems: (1) Abnormal uterine bleeding (AUB) (2) Asthma (3) Diabetes Surgical Problems: (1) H/O section (2) S/P cholecystectomy (3) S/P shoulder surgery Family History Diabetes mellitus FH: cancer FH: gallbladder disease FH: heart disease Hypertension Social History Smoking Status: Never Smoker Alcohol Use: occasionally Marital Status: Housing Status: lives with family Occupation Status: employed Current/Historical Medications Scheduled Estradiol (Estradiol), 0.05 MG TOP 2XWK Metronidazole (Flagyl), 500 MG PO TID Sertraline (Zoloft), 150 MG PO HS [Ciprofloxacin 500MG], 500 MG PO Q8H Scheduled PRN Lorazepam (Ativan), 0.5 MG PO DAILY PRN for Anxiety/Agitation Allergies Coded Allergies: Penicillins (Verified Allergy, Intermediate, CHILD - HIVES, 01/01/18) Physical Exam Vital Signs Date Time Temp Pulse Resp B/P (MAP) Pulse Ox O2 Delivery O2 Flow Rate FiO2 01/01/18 13:22 80 16 124/69 99 01/01/18 11:56 70 18 122/82 96 Room Air 01/01/18 10:04 36.8 82 20 119/81 97 Room Air Physical Exam GENERAL: Sitting up in bed, alert, well appearing, holding left lower quadrant, no distress, non-toxic EYE EXAM: normal conjunctiva. OROPHARYNX: no exudate, no erythema, lips, buccal mucosa, and tongue normal and mucous membranes are moist NECK: supple, no nuchal rigidity, no adenopathy, non-tender LUNGS: Clear to auscultation. Normal chest wall mechanics HEART: no murmurs, S1 normal and S2 normal ABDOMEN: Left lower quadrant tender to palpation. abdomen soft, normo-active bowel sounds, no masses, no rebound or guarding. BACK: Back is symmetrical on inspection and there is no deformity, no midline tenderness, no CVA tenderness. SKIN: no rashes and no bruising UPPER EXTREMITIES: upper extremities are grossly normal. LOWER EXTREMITIES: No pitting edema. NEURO EXAM: Normal sensorium, cranial nerves II-XII grossly intact, normal speech, no gross weakness of arms, no gross weakness of legs. Medical Decision & Procedures ER Provider Diagnostic Interpretation: Radiology results as stated below per my review and the radiologist's interpretation: ABDOMEN AND PELVIS CT WITH IV CONTRAST FINDINGS: Mild dependent subsegmental bibasilar atelectasis. 5 mm solid nodule of the basal left lower lobe, image 40 series 3, unchanged from study dated 12/03/2013 compatible with benign etiology. No pneumatosis or pneumoperitoneum. Imaged inferior cardiac chambers are unremarkable. Prior cholecystectomy. Hepatic steatosis. Spleen, pancreas and adrenal glands are within normal limits. Kidneys, ureters and bladder are unremarkable. Prior hysterectomy. The lesser noted within the pelvis. Aorta appears normal. No bulky adenopathy. No bowel obstruction. There is mild wall thickening of the proximal sigmoid colon with mild associated inflammatory changes and thickening of the adjacent peritoneum. The inflammation appears be centered about colonic diverticula. Multiple additional noninflamed diverticula are noted throughout the colon. No evidence of perforation or drainable fluid collection. Moderate stool volume throughout the colon. Normal appendix. Tiny fat filled periumbilical hernia, 1.7 cm with diastases recti. Bones appear intact. Mild to moderate degenerative disc disease at L5-S1. IMPRESSION: 1. Findings compatible with mild acute sigmoid diverticulitis without evidence of perforation or drainable fluid collection. 2. No bowel obstruction. 3. Prior hysterectomy and cholecystectomy. 4. Hepatic steatosis. 5. Tiny fat filled periumbilical hernia. Electronically signed by: Bert Key M.D. Laboratory Results 01/01/18 10:40 Red Blood Count 4.50, Mean Corpuscular Volume 85.8, Mean Corpuscular Hemoglobin 29.3, Mean Corpuscular Hemoglobin Concent 34.2, Mean Platelet Volume 8.7, Neutrophils (%) (Auto) 64.0, Lymphocytes (%) (Auto) 30.8, Monocytes (%) (Auto) 3.6, Eosinophils (%) (Auto) 1.2, Basophils (%) (Auto) 0.2, Neutrophils # (Auto) 5.21, Lymphocytes # (Auto) 2.51, Monocytes # (Auto) 0.29, Eosinophils # (Auto) 0.10, Basophils # (Auto) 0.02 01/01/18 10:40 Test 01/01/18 10:40 White Blood Count 8.15 K/uL (4.8-10.8) Red Blood Count 4.50 M/uL (4.2-5.4) Hemoglobin 13.2 g/dL (12.0-16.0) Hematocrit 38.6 % (37-47) Mean Corpuscular Volume 85.8 fL (80-100) Mean Corpuscular Hemoglobin 29.3 pg (25-34) Mean Corpuscular Hemoglobin Concent 34.2 g/dl (32-36) Platelet Count 263 K/uL (130-400) Mean Platelet Volume 8.7 fL (7.4-10.4) Neutrophils (%) (Auto) 64.0 % Lymphocytes (%) (Auto) 30.8 % Monocytes (%) (Auto) 3.6 % Eosinophils (%) (Auto) 1.2 % Basophils (%) (Auto) 0.2 % Neutrophils # (Auto) 5.21 K/uL (1.4-6.5) Lymphocytes # (Auto) 2.51 K/uL (1.2-3.4) Monocytes # (Auto) 0.29 K/uL (0.11-0.59) Eosinophils # (Auto) 0.10 K/uL (0-0.5) Basophils # (Auto) 0.02 K/uL (0-0.2) RDW Standard Deviation 42.1 fL (36.4-46.3) RDW Coefficient of Variation 13.5 % (11.5-14.5) Immature Granulocyte % (Auto) 0.2 % Immature Granulocyte # (Auto) 0.02 K/uL (0.00-0.02) Urine Color YELLOW Urine Appearance CLEAR (CLEAR) Urine pH 5.0 (4.5-7.5) Urine Specific [place] 1.020 (1.000-1.030) Urine Protein NEG (NEG) Urine Glucose (UA) NEG (NEG) Urine Ketones NEG (NEG) Urine Occult Blood NEG (NEG) Urine Nitrite NEG (NEG) Urine Bilirubin NEG (NEG) Urine Urobilinogen NEG (NEG) Urine Leukocyte Esterase TRACE (NEG) Urine WBC (Auto) 1-5 /hpf (0-5) Urine RBC (Auto) 0-4 /hpf (0-4) Urine Hyaline Casts (Auto) 1-5 /lpf (0-5) Urine Epithelial Cells (Auto) 20-30 /lpf (0-5) Urine Bacteria (Auto) NEG (NEG) Anion Gap 3.0 mmol/L (3-11) Est Creatinine Clear Calc Drug Dose 82.8 ml/min Estimated GFR () 76.6 Estimated GFR (Non- 66.1 BUN/Creatinine Ratio 10.7 (10-20) Calcium Level 9.4 mg/dl (8.5-10.1) Total Bilirubin 0.3 mg/dl (0.2-1) Direct Bilirubin < 0.1 mg/dl (0-0.2) Aspartate Amino Transf (AST/SGOT) 16 U/L (15-37) Alanine Aminotransferase (ALT/SGPT) 35 U/L (12-78) Alkaline Phosphatase 69 U/L (45-117) Total Protein 7.4 gm/dl (6.4-8.2) Albumin 3.7 gm/dl (3.4-5.0) Lipase 104 U/L (73-393) Laboratory results per my review. Medications Administered Medications (Trade) Dose Ordered Sig/Carlos Route Start Time Stop Time Status Last Admin Dose Admin Sodium Chloride 1,000 ml @ 999 mls/hr Q1H1M STAT IV 01/01/18 10:21 01/01/18 11:21 DC 01/01/18 10:21 999 MLS/HR ED Course ED COURSE: Vital signs were reviewed and showed normal The patients medical record was reviewed The above diagnostic studies were performed and reviewed. ED treatments and interventions as stated above. 1017: The patient was evaluated in room B3B. A complete history and physical examination was performed. 1021 Ordered Sodium Chloride 1000 ml @ 999 mls/hr IV. 1306: I updated the patient on her test results. 1322: Upon reevaluation, the patient is resting comfortably.I discussed my findings with the patient and she understands and agrees with the treatment plan. Based on the patients age, coexisting illnesses, exam and lab findings the decision to treat as an outpatient was made. The patient remained stable while under my care. The patient appeared well at the time of discharge. Medical Decision Differential diagnoses includes but is not limited to gastritis, peptic ulcer disease, GERD, gallbladder disease, pancreatitis, small bowel obstruction, acute coronary syndrome, pericarditis, ischemic bowel, irritable bowel disease, irritable bowel syndrome, appendicitis, diverticulitis, malignancy, hernia, urinary tract infection, torsion, /ectopic (if female), perforation, trauma, infectious. Patient is a 47-year-old female who presents to ER with left lower quadrant abdominal pain that has been present for the past 4 days. She was started on antibiotics close to 3 days ago. She is taking Cipro and Flagyl. She notes this feels like her previous diverticulitis but it did not resolve immediately as it normally does with antibiotics. Vitals are stable. Afebrile not tachycardic. CBC along with BMP, LFTs, bilirubin lipase is unremarkable. UA was negative. CT shows diverticulitis without perforation or abscess. Patient was updated at bedside. I did not switch her medications as she is allergic to Augmentin. Favor trying for an additional 2 days worth of antibiotics and following up with PCP. She will return for any worsening of symptoms or fevers. Discussed with Pt concerning signs and symptoms to watch out for. Pt was instructed to follow up with their PCP and discussed with the patient their option to return to the ED at anytime for persistent or worsening symptoms. The appropriate anticipatory guidance and out-patient management, including indications for return to the emergency department, were explained at length to the patient and understood. Medication Reconcilliation Current Medication List: was personally reviewed by me Blood Pressure Screening Patient's blood pressure: Normal blood pressure Impression Primary Impression: Diverticulitis Scribe Attestation The scribe's documentation has been prepared under my direction and personally reviewed by me in its entirety. I confirm that the note above accurately reflects all work, treatment, procedures, and medical decision making performed by me. Departure Information Dispostion Home / Self-Care Referrals Claire Starkey, C.R.N.P. (PCP) Forms Call Back Authorization, HOME CARE DOCUMENTATION FORM, IMPORTANT VISIT INFORMATION Patient Instructions Diverticuliaudrey Regalado, My [facility] Additional Instructions Please follow up with your primary care doctor with in the next 24 hours. Any worsening of your symptoms, please return to the ED immediately. This includes any fevers greater than 100.4, worsening pain, chest pain, shortness breath, persistent nausea, vomiting, unable to eat or drink, or any other concerning signs or symptoms from your standpoint. If pain is not improving over the course the next 2 days should follow-up with your PCP for readjustment of medications or return to the ER for IV antibiotics.
== END 2018-01-01 13:22 | disposition home or self-care (01) ==
LOC: C.EDB 09:59
DX: K57.32 Diverticulitis of large intestine without perforation or abscess without bleeding (principal); J45.909 Unspecified asthma, uncomplicated; E11.9 Type 2 diabetes mellitus without complications; Z79.899 Other long term (current) drug therapy; Z88.0 Allergy status to penicillin

== ENCOUNTER 2018-02-11 17:22 | Emergency (ER) | payer OTHER ==
[~2018-02-11] VITALS: Ht 170.2 cm; Wt 99.5 kg
[~2018-02-11 17:22] MED LIST changes: +CIPROFLOXACIN 500 MG PO; -IBUP-1050 PO; +METR-163 PO; -SERT25TA PO
[2018-02-11 17:29] VITALS: TEMP 36.9; Ht 170.2 cm; Wt 99.5 kg
[2018-02-11] MEDS ORDERED: SODIUM CHLORIDE 0.9% 1000ML 1,000 ML IV STA (17:41)
[2018-02-11] MEDS ORDERED: ONDANSETRON INJ 2 MG/ML 2 ML VIAL IV STA (17:41)
[2018-02-11] MEDS ORDERED: HYDROmorphone INJ 1 MG/ML SYR IV STA (17:41)
[2018-02-11] MEDS ORDERED: OPTIRAY 320 IV PRN (17:45)
--- NOTE | 2018-02-11 18:01 | EMERGENCY ROOM VISIT NOTE ---
History Report prepared by Mike: Stephanie Chavarria Under the Supervision of: Dr. Gage Solorio M.D. First contact with patient: 17:32 Chief Complaint: FLANK PAIN Stated Complaint: LEFT ABD PAIN , BACK PAIN History of Present Illness The patient is a 47 year old female who presents to the Emergency Room with complaints of sudden sharp left sided abdominal pain that wraps around to her left flank beginning last night. The patient had diverticulitis a month ago and she was put on Cipro and Flagyl. Her pain feels similar to her previous diverticulitis; however, she reports the onset of her pain was not sudden last time she had it. She did not require surgery for her diverticulitis then. The patient reports her pain worsens with movement. She saw her PCP a week ago for pain over her naval and was diagnosed with an umbilical hernia. The patient notes nausea but denies any fever vomiting, urinary burning, blood in urine, rashes, or leg swelling. She states she was constipated two days ago and then had diarrhea yesterday. Source of History: patient Onset: last night Position: abdomen Quality: sharp Timing: other (sudden) Modifying Factors (Worsening): movement Associated Symptoms: + nausea, + abdominal pain, + back pain, + diarrhea, No fevers, No vomiting, No urinary symptoms Review of Systems See HPI for pertinent positives & negatives. A total of 10 systems reviewed and were otherwise negative. Past Medical & Surgical Medical Problems: (1) Abnormal uterine bleeding (AUB) (2) Asthma (3) Diabetes Surgical Problems: (1) H/O section (2) S/P cholecystectomy (3) S/P shoulder surgery Family History Diabetes mellitus FH: cancer FH: gallbladder disease FH: heart disease Hypertension Social History Smoking Status: Never Smoker Alcohol Use: occasionally Marital Status: Housing Status: lives with family Occupation Status: employed Current/Historical Medications Scheduled Estradiol (Estradiol), 0.05 MG TOP 2XWK Metronidazole (Flagyl), 500 MG PO TID Sertraline (Zoloft), 150 MG PO HS Sulfa/Trimethoprim (Bactrim Ds 800MG/160MG), 1 TAB PO BID Scheduled PRN Lorazepam (Ativan), 0.5 MG PO DAILY PRN for Anxiety/Agitation Allergies Coded Allergies: Penicillins (Verified Allergy, Intermediate, CHILD - HIVES, 02/11/18) Physical Exam Vital Signs Date Time Temp Pulse Resp B/P (MAP) Pulse Ox O2 Delivery O2 Flow Rate FiO2 02/11/18 19:49 74 16 127/78 98 02/11/18 18:30 96 18 114/69 94 Room Air 02/11/18 17:29 36.9 106 18 118/77 97 Room Air Physical Exam GENERAL: Patient is uncomfortably appearing and in moderate distress. EYES: No scleral icterus, unremarkable pupils. ENT: Mucous membranes moist, no nasal congestion. NECK: No masses appreciated, no meningismus, trachea is midline. RESPIRATORY: No dyspnea. Clear to auscultation and equal bilaterally. No wheeze , no rhonchi. CARDIOVASCULAR: Tachycardic rate and regular rhythm. No murmurs, rubs, gallops appreciated. GASTROINTESTINAL: Moderate tenderness to left sided abdomen. Abdomen soft, no peritonitis. Bowel sounds positive. No masses appreciated. BACK: No midline tenderness. Mild left CVA tenderness to palpation. EXTREMITIES: Normal motion all extremities, no cyanosis, no edema. NEUROLOGIC: Alert and oriented, no acute motor or sensory deficits, no focal weakness, cranial nerves grossly intact. SKIN: No rash, no jaundice, no diaphoresis. Medical Decision & Procedures ER Provider Diagnostic Interpretation: Radiology results and stated below per my review and radiologist interpretation: ABDOMEN AND PELVIS CT WITH IV CONTRAST FINDINGS: Stable 5 mm within the left lower lobe on image 9. No fractures within the visualized osseous structures. Tiny fat-containing umbilical hernia. Mild bowel wall thickening at the junction of the descending colon and sigmoid colon with surrounding inflammatory change. This is consistent with acute diverticulitis. No perforation or abscess identified at this time. No evidence for bowel obstruction. Normal appendix. Cholecystectomy. Hepatic steatosis. The spleen, adrenal glands, pancreas punctate stone within the right kidney. The kidneys enhance normally. No hydronephrosis. Prior hysterectomy. No retroperitoneal lymphadenopathy. IMPRESSION: 1. Acute diverticulitis involving the junction of the descending colon/sigmoid colon. No perforation or abscess at this time. 2. Normal appendix. 3. Hepatic steatosis. 4. Stable 5 mm nodule within the base of the left lower lobe. Electronically signed by: Isaías Londono M.D. Laboratory Results 02/11/18 17:55 Red Blood Count 4.06, Mean Corpuscular Volume 86.2, Mean Corpuscular Hemoglobin 29.3, Mean Corpuscular Hemoglobin Concent 34.0, Mean Platelet Volume 9.0, Neutrophils (%) (Auto) 70.0, Lymphocytes (%) (Auto) 22.3, Monocytes (%) (Auto) 6.2, Eosinophils (%) (Auto) 1.1, Basophils (%) (Auto) 0.2, Neutrophils # (Auto) 7.53, Lymphocytes # (Auto) 2.40, Monocytes # (Auto) 0.67, Eosinophils # (Auto) 0.12, Basophils # (Auto) 0.02 02/11/18 17:55 Test 02/11/18 17:50 02/11/18 17:55 Urine Color YELLOW Urine Appearance CLEAR (CLEAR) Urine pH 5.0 (4.5-7.5) Urine Specific [place] 1.011 (1.000-1.030) Urine Protein NEG (NEG) Urine Glucose (UA) NEG (NEG) Urine Ketones NEG (NEG) Urine Occult Blood NEG (NEG) Urine Nitrite NEG (NEG) Urine Bilirubin NEG (NEG) Urine Urobilinogen NEG (NEG) Urine Leukocyte Esterase NEG (NEG) Urine WBC (Auto) 1-5 /hpf (0-5) Urine RBC (Auto) 0-4 /hpf (0-4) Urine Hyaline Casts (Auto) 1-5 /lpf (0-5) Urine Epithelial Cells (Auto) 10-20 /lpf (0-5) Urine Bacteria (Auto) NEG (NEG) Urine Test NEG (NEG) White Blood Count 10.76 K/uL (4.8-10.8) Red Blood Count 4.06 M/uL (4.2-5.4) Hemoglobin 11.9 g/dL (12.0-16.0) Hematocrit 35.0 % (37-47) Mean Corpuscular Volume 86.2 fL (80-100) Mean Corpuscular Hemoglobin 29.3 pg (25-34) Mean Corpuscular Hemoglobin Concent 34.0 g/dl (32-36) Platelet Count 236 K/uL (130-400) Mean Platelet Volume 9.0 fL (7.4-10.4) Neutrophils (%) (Auto) 70.0 % Lymphocytes (%) (Auto) 22.3 % Monocytes (%) (Auto) 6.2 % Eosinophils (%) (Auto) 1.1 % Basophils (%) (Auto) 0.2 % Neutrophils # (Auto) 7.53 K/uL (1.4-6.5) Lymphocytes # (Auto) 2.40 K/uL (1.2-3.4) Monocytes # (Auto) 0.67 K/uL (0.11-0.59) Eosinophils # (Auto) 0.12 K/uL (0-0.5) Basophils # (Auto) 0.02 K/uL (0-0.2) RDW Standard Deviation 43.2 fL (36.4-46.3) RDW Coefficient of Variation 13.9 % (11.5-14.5) Immature Granulocyte % (Auto) 0.2 % Immature Granulocyte # (Auto) 0.02 K/uL (0.00-0.02) Anion Gap 6.0 mmol/L (3-11) Est Creatinine Clear Calc Drug Dose 91.6 ml/min Estimated GFR () 87.0 Estimated GFR (Non- 75.1 BUN/Creatinine Ratio 11.1 (10-20) Calcium Level 9.0 mg/dl (8.5-10.1) Total Bilirubin 0.5 mg/dl (0.2-1) Direct Bilirubin < 0.1 mg/dl (0-0.2) Aspartate Amino Transf (AST/SGOT) 16 U/L (15-37) Alanine Aminotransferase (ALT/SGPT) 30 U/L (12-78) Alkaline Phosphatase 68 U/L (45-117) Total Protein 7.5 gm/dl (6.4-8.2) Albumin 3.9 gm/dl (3.4-5.0) Lipase 104 U/L (73-393) Laboratory results as reviewed by me. Medications Administered Medications (Trade) Dose Ordered Sig/Carlos Route Start Time Stop Time Status Last Admin Dose Admin Hydromorphone HCl (Dilaudid Inj) 1 mg NOW STAT IV 02/11/18 17:41 02/11/18 17:43 DC 02/11/18 18:00 1 MG Ondansetron HCl (Zofran Inj) 4 mg NOW STAT IV 02/11/18 17:41 18 17:43 DC 02/11/18 18:00 4 MG Sodium Chloride 1,000 ml @ 999 mls/hr Q1H1M STAT IV 02/11/18 17:41 5/24/18 18:41 DC 02/11/18 17:56 999 MLS/HR Trimethoprim/ Sulfamethoxazole (Septra Ds 800/ 160MG Tab) 1 tab NOW STAT PO 02/11/18 19:35 02/11/18 19:36 DC 02/11/18 19:48 1 TAB Metronidazole (Flagyl Tab) 500 mg NOW STAT PO 02/11/18 19:35 02/11/18 19:36 DC 02/11/18 19:48 500 MG ED Course 1734: The patient was evaluated in room C7. A complete history and physical exam was performed. 1906: I updated the patient on her test results. Her pain has improved. 1931: The patient would like to try outpatient therapy for her reoccurring diverticulitis. 1941: Reevaluated the patient. Discussed results and discharge instructions: She verbalized understanding and agreement. The patient is ready for discharge. Medical Decision Differential: Renal Colic, Pyelonephritis, Hydronephrosis, Diverticulitis, MSK, amongst other pathologies entertained. 47 yr old female with rapid onset left flank pain over the last day. She had diverticulitis 1.5 months ago treated with cipro/flagyl. UA clear. Labs look OK. Patient without peritonitis though is tender over left flank and given amount of discomfort I feel that repeat CT is necessary (discussed this with patient). CT reveals non-perforated acute diverticulitis. Will treat with Bactrim/Flagyl this time as pen allergic and recently on Cipro. She is in agreement with follow up with PCP. Stressed RTED if worsening or other concerns. She is not septic and does not have surgical abdomen at this time. Medication Reconcilliation Current Medication List: was personally reviewed by me Blood Pressure Screening Patient's blood pressure: Normal blood pressure Impression Primary Impression: Diverticulitis Scribe Attestation The scribe's documentation has been prepared under my direction and personally reviewed by me in its entirety. I confirm that the note above accurately reflects all work, treatment, procedures, and medical decision making performed by me. Departure Information Dispostion Home / Self-Care Prescriptions Sulfa/Trimethoprim (Bactrim Ds 800MG/160MG) Tab 1 TAB PO BID for 10 Days, #20 TAB Prov: Gage Solorio M.D. 02/11/18 Metronidazole (Flagyl) 500 Mg Tab 500 MG PO TID for 10 Days, #30 TAB STARTED ON 12/29/17 TO CONTINUE FOR 10 DAYS Prov: Gage Solorio M.D. 02/11/18 Referrals Claire Starkey C.RMaria ENMaria EPMaria E (PCP) Forms HOME CARE DOCUMENTATION FORM, IMPORTANT VISIT INFORMATION Patient Instructions ED Diverticulitis, [facility] Additional Instructions We are always here to help. If you have worsening pain, fevers, vomiting, passing out or other concerns return for evaluation. You have received a narcotic pain medication. These medications may cause drowsiness and should not be used with other sedative medications. Do not drive , drink alcohol, perform dangerous activities, nor make important decisions after taking these medications. terminal block assembler use or inappropriate use may lead to addiction.
[2018-02-11 18:11] LABS: BASO % 0.2 %; BASO ABS # 0.02 K/uL (0-0.2); EOS % 1.1 %; EOS ABS # 0.12 K/uL (0-0.5); HEMOGLOBIN 11.9 g/dL (12.0-16.0); IG# 0.02 K/uL (0.00-0.02); LYMPH % 22.3 %; MEAN CELL VOLUME 86.2 fL (80-100); MEAN CORPUSCULAR HEMOGLOBIN 29.3 pg (25-34); MONO % 6.2 %; MONO ABS # 0.67 K/uL (0.11-0.59); NEUT ABS # 7.53 K/uL (1.4-6.5); PLATELET COUNT 236 K/uL (130-400); RED CELL DISTRIBUTION WIDTH CV 13.9 % (11.5-14.5); RED CELL DISTRIBUTION WIDTH SD 43.2 fL (36.4-46.3); WHITE BLOOD COUNT 10.76 K/uL (4.8-10.8)
[2018-02-11 18:38] LABS: ALBUMIN 3.9 gm/dl (3.4-5.0); ALKALINE PHOSPHATASE 68 U/L (45-117); ALT/SGPT 30 U/L (12-78); AST/SGOT 16 U/L (15-37); BLOOD UREA NITROGEN 10 mg/dl (7-18); CARBON DIOXIDE 26 mmol/L (21-32); GLUCOSE 87 mg/dl (70-99); LIPASE 104 U/L (73-393); POTASSIUM 3.5 mmol/L (3.5-5.1); SODIUM 137 mmol/L (136-145); TOTAL PROTEIN 7.5 gm/dl (6.4-8.2)
--- NOTE | 2018-02-11 19:08 | DIAGNOSTIC IMAGING REPORT ---
ABDOMEN AND PELVIS CT WITH IV CONTRAST CT DOSE: 1080.85 mGy.cm HISTORY: left flank pain, nausea, sudden onset. Recent Diverticulitis TECHNIQUE: Multiaxial CT images of the abdomen and pelvis were performed following the use of intravenous contrast. A dose lowering technique was utilized adhering to the principles of ALARA. COMPARISON STUDY: Abdomen and pelvis CT 01/01/2018. FINDINGS: Stable 5 mm within the left lower lobe on image 9. No fractures within the visualized osseous structures. Tiny fat-containing umbilical hernia. Mild bowel wall thickening at the junction of the descending colon and sigmoid colon with surrounding inflammatory change. This is consistent with acute diverticulitis. No perforation or abscess identified at this time. No evidence for bowel obstruction. Normal appendix. Cholecystectomy. Hepatic steatosis. The spleen, adrenal glands, pancreas punctate stone within the right kidney. The kidneys enhance normally. No hydronephrosis. Prior hysterectomy. No retroperitoneal lymphadenopathy. IMPRESSION: 1. Acute diverticulitis involving the junction of the descending colon/sigmoid colon. No perforation or abscess at this time. 2. Normal appendix. 3. Hepatic steatosis. 4. Stable 5 mm nodule within the base of the left lower lobe. Electronically signed by: Isaías Londono M.D. 02/11/2018 7:07 PM Dictated Date/Time: 02/11/2018 7:02 PM
[2018-02-11] MEDS ORDERED: METRONIDAZOLE 250 MG TAB PO STA (19:35)
[2018-02-11] MEDS ORDERED: SULFAMETHOXAZOLE/TRIMETHOPRIM DS 800/160MG TAB PO STA (19:35)
[2018-02-11] MEDS ORDERED: METR-163 PO (19:38)
[2018-02-11] MEDS ORDERED: SULF800T23 PO (19:38)
[2018-02-11] MEDS ORDERED: OXYCODONE IR HOME PACK PO ONE (19:45)
[2018-02-11 19:49] VITALS: BP 127/78; PULSE 74; O2SAT 98
== END 2018-02-11 19:49 | disposition home or self-care (01) ==
LOC: C.EDB 17:24 → C.EDC 19:49
DX: K57.92 Diverticulitis of intestine, part unspecified, without perforation or abscess without bleeding (principal); Z87.19 Personal history of other diseases of the digestive system; Z83.79 Family history of other diseases of the digestive system; Z88.0 Allergy status to penicillin

== ENCOUNTER 2018-04-25 19:27 | Emergency (ER) | payer OTHER ==
[~2018-04-25] VITALS: Ht 170.2 cm; Wt 102.8 kg
[~2018-04-25 19:27] MED LIST changes: -CIPROFLOXACIN 500 MG PO
[2018-04-25 19:31] VITALS: TEMP 36.9; Ht 170.2 cm; Wt 102.8 kg
[2018-04-25] MEDS ORDERED: HYDROmorphone INJ 1 MG/ML SYR IV STA ×2 (19:52→21:22)
[2018-04-25] MEDS ORDERED: SODIUM CHLORIDE 0.9% 1000ML 1,000 ML IV STA (19:52)
[2018-04-25] MEDS ORDERED: ONDANSETRON INJ 2 MG/ML 2 ML VIAL IV STA (19:52)
[2018-04-25] MEDS ORDERED: DICY10CA55 PO (19:55)
[2018-04-25] MEDS ORDERED: ESTR0.07 TD (19:55)
[2018-04-25] MEDS ORDERED: OPTIRAY 320 IV PRN (20:00)
[2018-04-25 20:03] LABS: BASO % 0.2 %; BASO ABS # 0.02 K/uL (0-0.2); EOS % 1.2 %; EOS ABS # 0.15 K/uL (0-0.5); HEMATOCRIT 39.8 % (37-47); HEMOGLOBIN 13.5 g/dL (12.0-16.0); IG# 0.03 K/uL (0.00-0.02); LYMPH % 24.7 %; LYMPH ABS # 3.07 K/uL (1.2-3.4); MEAN CELL VOLUME 86.7 fL (80-100); MEAN CORPUSCULAR HEMOGLOBIN 29.4 pg (25-34); MEAN CORPUSCULAR HGB CONC 33.9 g/dl (32-36); MONO % 4.3 %; MONO ABS # 0.53 K/uL (0.11-0.59); NEUT % 69.4 %; NEUT ABS # 8.61 K/uL (1.4-6.5); PLATELET COUNT 246 K/uL (130-400); RED CELL DISTRIBUTION WIDTH SD 44.1 fL (36.4-46.3); WHITE BLOOD COUNT 12.41 K/uL (4.8-10.8)
--- NOTE | 2018-04-25 20:21 | EMERGENCY ROOM VISIT NOTE ---
History First contact with patient: 19:34 Chief Complaint: ABDOMINAL PAIN Stated Complaint: LEFT SIDE ABDOMINAL PAIN, NAUSEA Nursing Triage Summary: Pt hx diverticulitis. Pt reports left lower quadrant pain with nausea. Pt has had nausea for several days denies vomiting. Pt reports diarrhea but states, "I always have diarrhea." History of Present Illness The patient is a 47 year old female who presents to the Emergency Room with complaints of abdominal pain. The patient reports a history of diverticulitis. She states that she has had abdominal pain which began this morning. She states the pain is primarily in her left lower abdomen/flank, but does also have some mild pain in the right lower abdomen and suprapubic area. She rates the discomfort a 5/10 and states the pain is worsened with any movements or with deep breathing. She has a prescription for Bentyl at home and took this without relief. She does note that she has been feeling nauseous and slightly lightheaded for the past 4-5 days. She has not vomited. She states that she has had several episodes of diverticulitis in the past year. She sees Dr. Stanford of colorectal surgery at [place]. He recently ordered a barium study which she had performed here. She does state that he told her if she has another episode of pain, she should get a scan to see if there is any inflammation. She does report diarrhea but states this is normal for her. She denies fevers, urinary symptoms or blood in her stools. Review of Systems A complete 10 point review of systems was reviewed with the patient with pertinent positives and negatives as per history of present illness. All else were negative. Past Medical/Surgical History Medical Problems: (1) Abnormal uterine bleeding (AUB) (2) Asthma (3) Diabetes Surgical Problems: (1) H/O section (2) S/P cholecystectomy (3) S/P shoulder surgery Family History Diabetes mellitus FH: cancer FH: gallbladder disease FH: heart disease Hypertension Social History Smoking Status: Never Smoker Alcohol Use: occasionally Marital Status: Housing Status: lives with family Occupation Status: employed Current/Historical Medications Scheduled Ciprofloxacin Hcl (Cipro), 500 MG PO BID Estradiol (Vivelle-Dot), 1 PATCH TD 2XWK Metronidazole (Flagyl), 500 MG PO TID Sertraline (Zoloft), 150 MG PO HS Scheduled PRN Dicyclomine Hcl (Bentyl), 10 MG PO QID PRN for Pain Lorazepam (Ativan), 0.5 MG PO DAILY PRN for Anxiety/Agitation Physical Exam Vital Signs Date Time Temp Pulse Resp B/P (MAP) Pulse Ox O2 Delivery O2 Flow Rate FiO2 04/25/18 22:02 90 18 112/65 97 04/25/18 21:16 80 18 121/64 100 Room Air 04/25/18 19:31 36.9 116 18 125/82 96 Room Air Physical Exam VITALS: Vitals are noted on the nurse's note and reviewed by myself. Vital signs stable. GENERAL: This is a 47-year-old female, in no acute distress, nondiaphoretic, well-developed well-nourished. SKIN: The skin was without rashes. HEART: Regular rate and rhythm without murmurs gallops or rubs. LUNGS: Clear to auscultation bilaterally without wheezes, rales or rhonchi. ABDOMEN: Positive bowel sounds x 4. Abdomen is soft and nondistended. There is tenderness across the lower abdomen with focal tenderness to the left lower quadrant/left flank. No guarding or rebound tenderness. No palpable masses. NEURO: Patient was alert and oriented to person place and time. Medical Decision & Procedures ER Provider Diagnostic Interpretation: ABD/PELVIS IV CONTRAST ONLY CT DOSE: 1243.75 mGy.cm HISTORY: Pain abdominal pain, hx diverticulitis TECHNIQUE: Multiaxial CT images of the abdomen and pelvis were performed following the use of intravenous contrast. A dose lowering technique was utilized adhering to the principles of ALARA. COMPARISON STUDY: 02/11/2018 FINDINGS: Lung bases are clear. Fatty infiltration of liver. Prior cholecystectomy. Mild cortical scarring of the kidneys bilaterally. No evidence for hydronephrosis. Spleen is uniform. Pancreas is unremarkable. Bowel pattern is remarkable for acute mid to distal descending diverticulitis. Findings of mild low-grade diverticulitis of the proximal sigmoid. There is no evidence for abscess collection or obstructive change. The bladder is midline. IMPRESSION: 1. Acute descending and to a lesser extent proximal sigmoid diverticulitis. 2. No evidence for abscess collection or obstruction. 3. Mild pericolonic infiltrative change primarily of the mid descending colonic region. 4. Fatty infiltration of liver. Laboratory Results 04/25/18 19:50 Red Blood Count 4.59, Mean Corpuscular Volume 86.7, Mean Corpuscular Hemoglobin 29.4, Mean Corpuscular Hemoglobin Concent 33.9, Mean Platelet Volume 9.0, Neutrophils (%) (Auto) 69.4, Lymphocytes (%) (Auto) 24.7, Monocytes (%) (Auto) 4.3, Eosinophils (%) (Auto) 1.2, Basophils (%) (Auto) 0.2, Neutrophils # (Auto) 8.61, Lymphocytes # (Auto) 3.07, Monocytes # (Auto) 0.53, Eosinophils # (Auto) 0.15, Basophils # (Auto) 0.02 04/25/18 19:50 Test 04/25/18 19:50 04/25/18 21:20 White Blood Count 12.41 K/uL (4.8-10.8) Red Blood Count 4.59 M/uL (4.2-5.4) Hemoglobin 13.5 g/dL (12.0-16.0) Hematocrit 39.8 % (37-47) Mean Corpuscular Volume 86.7 fL (80-100) Mean Corpuscular Hemoglobin 29.4 pg (25-34) Mean Corpuscular Hemoglobin Concent 33.9 g/dl (32-36) Platelet Count 246 K/uL (130-400) Mean Platelet Volume 9.0 fL (7.4-10.4) Neutrophils (%) (Auto) 69.4 % Lymphocytes (%) (Auto) 24.7 % Monocytes (%) (Auto) 4.3 % Eosinophils (%) (Auto) 1.2 % Basophils (%) (Auto) 0.2 % Neutrophils # (Auto) 8.61 K/uL (1.4-6.5) Lymphocytes # (Auto) 3.07 K/uL (1.2-3.4) Monocytes # (Auto) 0.53 K/uL (0.11-0.59) Eosinophils # (Auto) 0.15 K/uL (0-0.5) Basophils # (Auto) 0.02 K/uL (0-0.2) RDW Standard Deviation 44.1 fL (36.4-46.3) RDW Coefficient of Variation 14.0 % (11.5-14.5) Immature Granulocyte % (Auto) 0.2 % Immature Granulocyte # (Auto) 0.03 K/uL (0.00-0.02) Anion Gap 9.0 mmol/L (3-11) Est Creatinine Clear Calc Drug Dose 94.3 ml/min Estimated GFR () 88.2 Estimated GFR (Non- 76.1 BUN/Creatinine Ratio 14.2 (10-20) Calcium Level 8.9 mg/dl (8.5-10.1) Total Bilirubin 0.3 mg/dl (0.2-1) Aspartate Amino Transf (AST/SGOT) 18 U/L (15-37) Alanine Aminotransferase (ALT/SGPT) 33 U/L (12-78) Alkaline Phosphatase 72 U/L (45-117) Total Protein 7.4 gm/dl (6.4-8.2) Albumin 4.0 gm/dl (3.4-5.0) Globulin 3.4 gm/dl (2.5-4.0) Albumin/Globulin Ratio 1.2 (0.9-2) Urine Color YELLOW Urine Appearance CLEAR (CLEAR) Urine pH 5.0 (4.5-7.5) Urine Specific [place] 1.036 (1.000-1.030) Urine Protein NEG (NEG) Urine Glucose (UA) NEG (NEG) Urine Ketones NEG (NEG) Urine Occult Blood NEG (NEG) Urine Nitrite NEG (NEG) Urine Bilirubin NEG (NEG) Urine Urobilinogen NEG (NEG) Urine Leukocyte Esterase NEG (NEG) Medications Administered Medications (Trade) Dose Ordered Sig/Carlos Route Start Time Stop Time Status Last Admin Dose Admin Sodium Chloride 1,000 ml @ 999 mls/hr Q1H1M STAT IV 04/25/18 19:52 04/25/18 20:52 DC 04/25/18 20:05 999 MLS/HR Hydromorphone HCl (Dilaudid Inj) 1 mg NOW STAT IV 04/25/18 19:52 04/25/18 19:53 DC 04/25/18 20:05 1 MG Ondansetron HCl (Zofran Inj) 4 mg NOW STAT IV 04/25/18 19:52 04/25/18 19:53 DC 04/25/18 20:05 4 MG Hydromorphone HCl (Dilaudid Inj) 1 mg NOW STAT IV 04/25/18 21:22 04/25/18 21:23 DC 04/25/18 21:43 1 MG Ciprofloxacin (Cipro 500MG Home Pack) 1 homepack UD ONCE PO 04/25/18 21:45 04/25/18 21:47 DC 04/25/18 21:56 1 HOMEPACK Metronidazole (Flagyl Tab) 1,000 mg NOW STAT PO 04/25/18 21:42 04/25/18 21:47 DC 04/25/18 21:57 1,000 MG Medical Decision Differential diagnosis includes diverticulitis, perforation, abscess, sepsis, among others. The patient is a 47-year-old female who presents today complaining of abdominal pain consistent with diverticulitis. Labs revealed mild leukocytosis of 12, 000. No concerning electrolyte abnormalities. Urinalysis was not suggestive of infection. Patient reports symptoms are similar to previous episodes of diverticulitis and clinically she appears to have an uncomplicated diverticulitis. However, patient does report that her colorectal surgeon recommended she have a CT scan with her next flareup. Therefore, CT with IV contrast was performed and read by radiology as above. Patient was given a copy of her CT on a disc. She will be placed on ciprofloxacin and Flagyl and was advised close follow-up with her agricultural chemist. Based on the patient's presentation and work up, I feel the patient is stable for outpatient treatment. The patient was educated to return to the emergency department for any worsening of their current condition or new/concerning symptoms. She will follow up with GI. Medication Reconcilliation Current Medication List: was personally reviewed by me Blood Pressure Screening Patient's blood pressure: Normal blood pressure Impression Primary Impression: Diverticulitis Departure Information Dispostion Home / Self-Care Condition GOOD Prescriptions Metronidazole (Flagyl) 500 Mg Tab 500 MG PO TID for 10 Days, #30 TAB Prov: Julia Juarez PA-C 04/25/18 Ciprofloxacin Hcl (CIPRO) 500 Mg Tab 500 MG PO BID for 10 Days, #20 TAB Prov: Julia Juarez PA-C 04/25/18 Referrals Claire Starkey C.R.N.P. (PCP) Patient Instructions [facility] Additional Instructions You have been treated in the Emergency Department for diverticulitis. Clear liquid diet as discussed. You were prescribed ciprofloxacin to be taken twice daily as prescribed. This is an antibiotic. All antibiotics have the potential to cause diarrhea. Stop this medication and contact a medical provider if you were to develop any significant adverse side effects including: wheezing, shortness of breath, passing out, vomiting, or a diffuse rash. Always take antibiotics as directed and COMPLETE the ENTIRE course regardless of the improvement of your symptoms. You were prescribed Flagyl to be taken 3 times daily as prescribed. This is an antibiotic. All antibiotics have the potential to cause diarrhea. Stop this medication and contact a medical provider if you were to develop any significant adverse side effects including: wheezing, shortness of breath, passing out, vomiting, or a diffuse rash. Always take antibiotics as directed and COMPLETE the ENTIRE course regardless of the improvement of your symptoms. For pain control, you can use the following [id number] medicines (if >12 yo): - Regular strength (325mg/tab) Tylenol (acetaminophen) 2 tabs every 4-6 hours as needed. Do not exceed 12 tablets in a 24 hour period. Avoid taking more than 4 grams (4000 mg) of Tylenol per day. This includes any other sources of acetaminophen you may take on a regular basis. - Regular strength (200 mg/tab) Advil (ibuprofen) 1-2 tabs every 4-6 hours as needed. Do not exceed a dose of 3200 mg per day. Drink plenty of water and stay well hydrated. Contact Dr. Stanford to schedule follow up. Return to the emergency department if your symptoms persist despite treatment plan outlined above or if the following symptoms occur: Worsening pain, persistent vomiting, fevers or other new/concerning symptoms.
[2018-04-25 20:48] LABS: CALCIUM 8.9 mg/dl (8.5-10.1); CREATININE 0.89 mg/dl (0.60-1.20); POTASSIUM 3.5 mmol/L (3.5-5.1); TOTAL PROTEIN 7.4 gm/dl (6.4-8.2)
--- NOTE | 2018-04-25 21:21 | DIAGNOSTIC IMAGING REPORT ---
ABD/PELVIS IV CONTRAST ONLY CT DOSE: 1243.75 mGy.cm HISTORY: Pain abdominal pain, hx diverticulitis TECHNIQUE: Multiaxial CT images of the abdomen and pelvis were performed following the use of intravenous contrast. A dose lowering technique was utilized adhering to the principles of ALARA. COMPARISON STUDY: 02/11/2018 FINDINGS: Lung bases are clear. Fatty infiltration of liver. Prior cholecystectomy. Mild cortical scarring of the kidneys bilaterally. No evidence for hydronephrosis. Spleen is uniform. Pancreas is unremarkable. Bowel pattern is remarkable for acute mid to distal descending diverticulitis. Findings of mild low-grade diverticulitis of the proximal sigmoid. There is no evidence for abscess collection or obstructive change. The bladder is midline. IMPRESSION: 1. Acute descending and to a lesser extent proximal sigmoid diverticulitis. 2. No evidence for abscess collection or obstruction. 3. Mild pericolonic infiltrative change primarily of the mid descending colonic region. 4. Fatty infiltration of liver. The above report was generated using voice recognition software. It may contain grammatical, syntax or spelling errors. Electronically signed by: Ceasar Everett M.D. 04/25/2018 9:19 PM Dictated Date/Time: 04/25/2018 9:17 PM
[2018-04-25] MEDS ORDERED: METRONIDAZOLE 250 MG TAB PO STA (21:42)
[2018-04-25] MEDS ORDERED: CIPROFLOXACIN 500MG HOME PACK PO ONE (21:45)
[2018-04-25] MEDS ORDERED: METR-163 PO (21:48)
[2018-04-25] MEDS ORDERED: CIPR-255 PO (21:48)
[2018-04-25] MEDS ORDERED: EMPTY 8 DRAM VIAL ONE (21:49)
[2018-04-25 22:02] VITALS: BP 112/65; PULSE 90; O2SAT 97
== END 2018-04-25 22:04 | disposition home or self-care (01) ==
LOC: C.EDB 19:28
DX: K57.92 Diverticulitis of intestine, part unspecified, without perforation or abscess without bleeding (principal); J45.909 Unspecified asthma, uncomplicated; E11.9 Type 2 diabetes mellitus without complications